=== PATIENT | male | born 1965 | race Caucasian/White ===

== ENCOUNTER → 2020-07-08 09:23 | Outpatient (BNVA) | payer OTHER, SELFPAY | PROVIDERS: PCP Family Medicine; Referring Provider Family Medicine; Visit Provider Physical Therapy Assistant | DX: Z12.11 Encounter for screening for malignant neoplasm of colon (principal) ==

== ENCOUNTER 2020-07-21 04:12 | Outpatient (CLI) | payer OTHER, SELFPAY ==
[2020-07-21 10:53] LABS: Source Nasal/Nares
[2020-07-21 15:50] LABS: COVID-19 PCR Negative (Negative)
== END 2020-07-21 04:13 | disposition home or self-care (01) ==
LOC: LBO 04:13
PROVIDERS: PCP Family Medicine; Visit Provider Surgery
DX: Z20.822 Contact with and (suspected) exposure to COVID-19 (principal); Z01.818 Encounter for other preprocedural examination
CPT/HCPCS: 87635

== ENCOUNTER 2020-07-23 10:12 | Day surgery (SDC) | payer OTHER, SELFPAY ==
[2020-07-23] MEDS: Lactated Ringers 1,000 ML 80 ML IV (10:35)
[2020-07-23 10:38] VITALS: BP 120/90; PULSE 77; RESP 18; TEMP 36.4; O2SAT 96
--- NOTE | 2020-07-23 10:47 | W.ANESPRE ---
General Info Date of Service Date Performed: 07/23/20 Height: 5 ft 11 in Weight: 89.9 kg Body Mass Index (BMI): 27.6 Surgical Procedure: Operation Date: 07/23/20 10:50 Proposed Procedures Side Surgeon suzie Edwards, Meds Allergies and Home Medications Allergies Allergy/AdvReac Type Severity Reaction Status Date / Time niacin Allergy Intermediate flushing Verified 07/23/20 10:37 Home Medication Medication Instructions Recorded bisacodyl 5 mg tablet,delayed 5 mg PO ONCE #4 tab 07/08/20 release polyethylene glycol 3350 17 238 g PO ONCE #238 g 07/08/20 gram/dose oral powder Current Visit Medications: Current Medications Generic Name Dose Route Start Last Admin Trade Name Freq PRN Reason Stop Dose Admin Ringer's Solution 1,000 mls @ 80 mls/hr 07/23/20 06:00 IV 08/21/20 23:59 INFUSION TORRI IV Miscellaneous Supplies 1 each 07/23/20 06:00 Iv Access IV 08/21/20 23:59 DIRECTED TORRI Sodium Chloride 0 ml 07/23/20 06:00 Normal Saline Flush 10 Ml Syr IV 08/21/20 23:59 PRN PRN Sodium Chloride 0 ml 07/23/20 06:00 Normal Saline 10 Ml Vial IJ 08/21/20 23:59 DIRECTED PRN Sterile Water 0 ml 07/23/20 06:00 Water,Injection,Sterile 10 Ml Vial IJ 08/21/20 23:59 DIRECTED PRN PFSH Medical History Medical History (Updated 07/23/20 @ 10:37 by Desitni Conner) History of high cholesterol History of post traumatic stress disorder History of tinnitus History of torn meniscus of right knee Hx of traumatic brain injury Surgical History Surgical History (Updated 07/23/20 @ 10:37 by Destini Conner) Hx of inguinal hernia repair Tobacco Smoking/Tobacco Use Status: Never Alcohol Alcohol Intake: current Alcohol intake frequency: a few times a month Substance Use Substance use: Never Substance use type: does not use Vital Signs and Lab Results Vital Signs Most Recent Vital Signs in EMR: Most Recent Vital Signs Temp Pulse Resp BP Pulse Ox 36.4 C L 77 18 120/90 96 07/23/20 10:38 07/23/20 10:38 07/23/20 10:38 07/23/20 10:38 07/23/20 10:38 Lab Results Blood Type / Crossmatch: No Data to Display Complete Blood Count: No Data to Display Complete Metabolic Panel: No Data to Display Liver Function Panel: No Data to Display Coagulation Panel: No Data to Display Cardiac Panel: No Data to Display Arterial Blood Gas: No Data to Display Venous Blood Gas: No Data to Display Pancreas Panel: No Data to Display Thyroid Panel: No Data to Display Infectious Disease: Coronavirus (COVID-19)(PCR) Negative (Negative) 07/21/20 08:41 07/21/20 Coronavirus 2019 Source Nasal/nares 07/21/20 08:41 07/21/20 Blood Cultures: No Data to Display Toxicology Panel: No Data to Display Anesthesia Assessment and Plan Anesthesia History Personal History: Unknown Anesthesia History Family History: No Family History of Anesthesia Complications Exercise Tolerance Exercise Tolerance: Metabolic Equivalents>4 Pertinent Negatives Pertinent Negatives: No Symptoms of GERD, No Major Cardiovascular Symptoms or Complaints, No Major Pulmonary Symptoms or Complaints (+snores) and No History of CVA/TIA Cardiac & Pulmonary Exam Cardiac Exam: Normal S1/S2 Heart Sounds Pulmonary Exam: Clear Bilateral Breath Sounds Airway Exam Known Difficult Airway: No Mallampati Class: 1 Mouth Opening: Normal (> 3cm) Thyromental Distance: Greater than 3 cm Neck Range of Motion: Full ROM Neck Circumference: Normal Teeth Condition: Normal Dentition ASA Classification ASA Score: ASA 2 Emergency Case?: No NPO Status NPO Status: NPO Clears >2 hours, Solids >8 hours Anesthesia Plan Anesthesia Technique: General Anesthesia Airway Planned: Natural Airway Monitors Used: Standard Monitors
[2020-07-23 10:56] VITALS: BMI 27.6
--- NOTE | 2020-07-23 11:11 | BOWEL_PTH ---
PATIENT: Frankie Monahan LOC: [facility] U#:[id number] AGE/SX: 54/M ROOM: RE07/23/[address]: Onelia Edwards : 1965 BED: DIS: 07/23/2020 SPEC #: [id number] RECD: 07/23/20 12:57 STATUS: BERTO REQ #: [id number] JOHN: 07/23/20 11:[address]: Onelia Edwards DEPT: Surgical Specimen RECD BY: Dorinda Serrano ENTERED: 07/23/20 12:58 SP TYPE: Bowel OTHR DR: Tatum Phillips Tissues: 1 - BIOPSY BOWEL Procedures: GROSS AND MICRO LEVEL 4 Comments: [id number]
[2020-07-23 11:30] VITALS: BP 111/73; PULSE 72; RESP 16; TEMP 36.6; O2SAT 97
--- NOTE | 2020-07-23 11:31 | W.ANESPOSTOP ---
Postoperative Evaluation Date, Time and Location Date Performed: 07/23/20 Time Performed: 11:31 Patient Location: Day Surgery Unit Vital Signs Most Recent Imported Vital Signs: Most Recent Vital Signs Temp Pulse Resp BP Pulse Ox 36.4 C L 77 18 120/90 96 07/23/20 10:38 07/23/20 10:38 07/23/20 10:38 07/23/20 10:38 07/23/20 10:38 Most Recent Manually Entered Vital Signs: Adult Blood Pressure: 111/73 Heart Rate: 73 Respirations: 16 Oxygen Saturation (%): 96 Temperature (C): 36.6 C Pain Score (0-10 Scale): 0 Pain Score Most Recent Pain Score: Most Recent Pain Score Pain Level 0 07/23/20 10:38 Assessment Mental Status: Awake (Alert & Oriented to Patient Baseline) Airway and Respiratory Function: Patent airway with normal (patient baseline) respiratory exam Cardiovascular Function: Hemodynamically Stable Hydration Status: Adequately Hydrated Nausea & Vomiting: No Nausea or Vomiting Pain: Pt. Denies Any Pain Peripheral Nerve Block: Patient did not receive a nerve block
[2020-07-23 11:32] VITALS: BP 111/73; PULSE 73; RESP 16; TEMPC 36.6; O2SAT 96
--- NOTE | 2020-07-23 11:32 | W.COLOREPORT ---
Date of service: 07/23/20 Time of Service: 11:32 Colonoscopy Report Date of procedure: 07/23/20 Pre-op diagnosis general: screen Post-op diagnosis procedure note: same Surgeon: Onelia Edwards Anesthesia Type: General:No Airway Pathology: other Complications: None Disposition: same day Prep: Miralax/Dulcolax Retraction Time: 8 mins Procedure Description: After informed consent was obtained the patient was taken to the procedure room and placed in a left decubitous position. Monitors were applied and a time out was done. The patients name, date of , procedure, allergies to medications and metal in their body was reviewed. The patient was then sedated. Once sedated and comfortable a rectal exam was done. External exam was normal. Internal exam revealed a normal sphincter tone and no palpable masses. The prostate nl The scope was then introduced and retrofelexed. No internal hemorrhoids were identified. The scope was then advanced to the cecum w/out difficulty. The TI and appendiceal orifice were identified. The prep was good. The scope was then slowly retracted over 8 minutes back into the rectum. Polyps were removed: There is a 2 mm flat polyp in the rectum that was removed with a cold biopsy forcep. After further evaluation this is most likely lymphatic tissue and not truly a polyp. There were no diverticula or AVMs noted. And this is essentially a normal exam. The scope was removed and the patient was woken up and taken back to Same day surgery in stable condition. The patient tolerated the procedure well and there were no immediate complications. Follow up: The patient should follow up in 10 years unless they develop changes in bowel habits or other new gastrointestinal complaints.
--- NOTE | 2020-07-23 11:34 | PDOC.DSDIS_ITS ---
Discharge Plan Disposition Patient Disposition: HOME Condition: Good Discharge Details Reason For Visit: colon screen Attending Provider: Onelia Edwards Primary Care Provider: Tatum Phillips Home Meds and New Rx's Prescriptions: Discontinued bisacodyl [Dulcolax (bisacodyl)] 5 mg tablet,delayed release (DR/EC) 5 mg PO ONCE Qty: 4 RF: 0 polyethylene glycol 3350 17 gram/dose powder 238 g PO ONCE Qty: 238 RF: 0 Discharge Instructions Additional Instructions: DSU Colonoscopy Post- Op Instructions Instructions for Everyone who is given Anesthesia: For your safety, please do the following for the next twenty-four (24) hours: *Do Not operate a motor vehicle (car, truck, motorcycle, etc.) *Do Not drink alcoholic beverages or use any recreational drugs for the first 24 hours or while taking pain medications. The medications in your body may have a reaction that can be dangerous. *Do Not make any important decisions or sign any important papers. Findings:normal- very small polyp that I think is lymph tissue. We will send a letter in approximately 3 weeks time with the results of the pathology and when to repeat colonoscopy. I do think this will be lymph tissue and not a true polyp. Follow up: 10 yrs 1. No lifting over 20 pounds or strenuous activity for the first 24 hours after your procedure. After 24 hours there are no restrictions on your activity but you may feel fatigued for a few days. 2. After you arrive home you may have a light meal and return to your normal diet as you can tolerate it without feeling sick to your stomach. 3. You may have a bloated, gaseous feeling in your belly (abdomen) after a colonoscopy. Passing gas and belching will help. Walking or lying down on your left side with your knees flexed may relieve the discomfort. Call the office at [phone] (Office) or [phone] (Hospital) right away if you notice any of the following: a.Vomiting of blood or ?coffee ground stools?. b.Rectal bleeding 1Tbsp, blood clots or continuous bleeding. c.Severe belly (abdominal) pain. d.A hard distended belly (abdomen) and an inability to pass gas. 4. Please don?t expect to have a normal BM (bowel movement) for 2-3 days after your procedure. 5. If there are questions regarding the findings of your procedure, please contact your doctor 6. If you are unable to contact your doctor with a problem, contact the hospital at [phone]. 7. Continue all your regular medications unless directed otherwise. I understand the above instructions and have no questions. Signature of Patient or Adult Escort Name of Responsible Adult Escort Signature of Nurse Date/Time Activity:: as above Diet:: Small light meals x24 hours Discharge Orders Discharge Orders: Discharge Order (Routine); Ordered 07/22/20 Ordered By: Onelia Edwards DS: Diagnosis Discharge Diagnosis (1) Colon cancer screening: Status: Acute
[2020-07-23 11:59] VITALS: BP 132/97; PULSE 61; RESP 16; TEMP 36.6; O2SAT 98
--- NOTE | 2020-07-23 12:11 | PDOC.DSDIS_ITS ---
Discharge Plan Disposition Patient Disposition: HOME Condition: Good Discharge Details Reason For Visit: colon screen Attending Provider: Onelia Edwards Primary Care Provider: Tatum Phillips Home Meds and New Rx's Prescriptions: Discontinued bisacodyl [Dulcolax (bisacodyl)] 5 mg tablet,delayed release (DR/EC) 5 mg PO ONCE Qty: 4 RF: 0 polyethylene glycol 3350 17 gram/dose powder 238 g PO ONCE Qty: 238 RF: 0 Discharge Instructions Additional Instructions: DSU Colonoscopy Post- Op Instructions Instructions for Everyone who is given Anesthesia: For your safety, please do the following for the next twenty-four (24) hours: *Do Not operate a motor vehicle (car, truck, motorcycle, etc.) *Do Not drink alcoholic beverages or use any recreational drugs for the first 24 hours or while taking pain medications. The medications in your body may have a reaction that can be dangerous. *Do Not make any important decisions or sign any important papers. Findings:normal- very small polyp that I think is lymph tissue. We will send a letter in approximately 3 weeks time with the results of the pathology and when to repeat colonoscopy. I do think this will be lymph tissue and not a true polyp. Follow up: 10 yrs 1. No lifting over 20 pounds or strenuous activity for the first 24 hours after your procedure. After 24 hours there are no restrictions on your activity but you may feel fatigued for a few days. 2. After you arrive home you may have a light meal and return to your normal diet as you can tolerate it without feeling sick to your stomach. 3. You may have a bloated, gaseous feeling in your belly (abdomen) after a colonoscopy. Passing gas and belching will help. Walking or lying down on your left side with your knees flexed may relieve the discomfort. Call the office at [phone] (Office) or [phone] (Hospital) right away if you notice any of the following: a.Vomiting of blood or ?coffee ground stools?. b.Rectal bleeding 1Tbsp, blood clots or continuous bleeding. c.Severe belly (abdominal) pain. d.A hard distended belly (abdomen) and an inability to pass gas. 4. Please don?t expect to have a normal BM (bowel movement) for 2-3 days after your procedure. 5. If there are questions regarding the findings of your procedure, please contact your doctor 6. If you are unable to contact your doctor with a problem, contact the hospital at [phone]. 7. Continue all your regular medications unless directed otherwise. I understand the above instructions and have no questions. Signature of Patient or Adult Escort Name of Responsible Adult Escort Signature of Nurse Date/Time Stand Alone Forms: Elvia Aragon (JUANU) Activity:: as above Diet:: Small light meals x24 hours Discharge Orders Discharge Orders: Discharge Order (Routine); Ordered 07/22/20 Ordered By: Onelia Edwards Discharge Data Discharge Date/Time-TO BE ENTERED AT DEPARTURE: 07/23/20 13:08 DS: Diagnosis Discharge Diagnosis (1) Colon cancer screening: Status: Acute (2) Adenomatous colon polyp: Status: Acute
== END 2020-07-23 13:08 | disposition home or self-care (01) ==
PROVIDERS: PCP Family Medicine; Visit Provider Surgery
PROC: 0DJD8ZZ Inspection of Lower Intestinal Tract, Via Natural or Artificial Opening Endoscopic (ICD-10-PCS; CPT 45378; principal; 2020-07-23 10:45)
DX: Z12.11 Encounter for screening for malignant neoplasm of colon (principal); K62.1 Rectal polyp
CPT/HCPCS: 45380; 88305; J2001

== ENCOUNTER 2022-01-13 08:30 | Outpatient (CLI) | payer OTHER, SELFPAY ==
--- NOTE | 2022-01-13 08:15 | DI.RAD_ITS ---
Exam(s) XR KNEE RT 3V AP,LAT,MICHELLE EXAM: XR KNEE RT 3V AP,LAT,MICHELLE CLINICAL HISTORY: R knee pain. TECHNIQUE: 2D digital imaging was performed of the right knee. Three views obtained. AP, lateral an d PA tunnel views were obtained. COMPARISON: No exams were available for comparison FINDINGS: BONES: No acute fracture is present. No bony destructive lesion is seen. JOINTS: The knee is normally aligned. No joint effusion is seen. There is mild narrowing and periarti cular spurring in the medial femoral tibial joint. SOFT TISSUE: Normal. IMPRESSION: Degenerative changes of the right knee as described. DATA REPOSITORY: RADIATION DOSE DELIVERED:
== END 2022-01-13 08:31 | disposition home or self-care (01) ==
LOC: DIORS 08:30
PROVIDERS: PCP Family Medicine; Referring Provider Family Medicine; Visit Provider Physician Assistant
DX: M23.91 Unspecified internal derangement of right knee
CPT/HCPCS: 73562; 99213

== ENCOUNTER 2022-02-07 02:18 | Outpatient (CLI) | payer OTHER, SELFPAY ==
--- NOTE | 2022-02-07 08:00 | DI.MRI_ITS ---
Exam(s) MR LOWER JOINT RT WO EXAM: MR LOWER JOINT RT WO CLINICAL HISTORY: PAIN, INTERNAL DERANGEMENT RT KNEE, M23.91. TECHNIQUE: Multiplanar multisequence MRI was performed. COMPARISON: CR XR KNEE RT 3V AP,LAT,MICHELLE from 01/13/2022 FINDINGS: BONES: There is no fracture or contusion pattern. JOINTS: There is mild thinning of the articular cartilage in the medial patellar facet. There is mil d associated subchondral edema. No effusion is present. TENDONS: Extensor mechanism: Unremarkable. Medial retinaculum: Unremarkable. Lateral retinaculum: Unremarkable. Popliteus: Unremarkable. MUSCLES: Unremarkable. MENISCI: There is a tear of the posterior body of the medial meniscus. The lateral meniscus is unrem arkable. SOFT TISSUES: There is a small popliteal cyst. LIGAMENTS: Anterior Cruciate: Unremarkable. Posterior Cruciate: Unremarkable. Medial Collateral:Unremarkable. Lateral Collateral: Unremarkable. OTHER: IMPRESSION: 1. Tear of the posterior body of the medial meniscus. 2. Degenerative changes at the patellofemoral joint. 3. Small popliteal cyst. DATA REPOSITORY:
== END 2022-02-07 02:38 ==
LOC: DI 02:18
PROVIDERS: PCP Family Medicine; Visit Provider Student in an Organized Health Care Education/Training Program
DX: S83.241A Other tear of medial meniscus, current injury, right knee, initial encounter (principal); M17.11 Unilateral primary osteoarthritis, right knee; X58.XXXA Exposure to other specified factors, initial encounter
CPT/HCPCS: 73721

== ENCOUNTER → 2022-04-10 14:08 | Outpatient (BNVA) | payer OTHER, SELFPAY | PROVIDERS: PCP Family Medicine; Referring Provider Family Medicine; Visit Provider Student in an Organized Health Care Education/Training Program | DX: S83.231D Complex tear of medial meniscus, current injury, right knee, subsequent encounter (principal); X58.XXXD Exposure to other specified factors, subsequent encounter | CPT/HCPCS: 99213 ==

== ENCOUNTER → 2023-02-21 01:57 | Outpatient (CLI) | payer OTHER, SELFPAY ==
--- NOTE | 2023-02-21 | DI.MRI_ITS ---
Exam(s) MR LOWER JOINT LT WO EXAM: MR LOWER JOINT LT WO CLINICAL HISTORY: RT KNEE MENISCAL TEAR S83.206A TECHNIQUE: Multiplanar multisequence MRI of the knee was performed. COMPARISON: No prior imaging studies of the left knee available FINDINGS: EFFUSION: There is a small joint effusion and there is a small Ramirez cyst in the medial popliteal fos sa which measures approximately 2.8 cm cephalocaudal by 0.6 cm wide. MARROW:There is no evidence of fracture, bone contusion, nor osteochondral defects.. There are no si gnificant osseous lesions. PATELLOFEMORAL COMPARTMENT: The quadriceps tendon is intact. The patellar ligament is intact. There is moderate thinning of the retropatellar cartilage over the medial facet and there is a focal fissure in the cartilage at this level with subjacent bone edema in the medial patella. There is no distinct osteochondral defect at this level.There are no patellar retinacular tears. CRUCIATE LIGAMENTS: The anterior cruciate ligament is intact.The posterior cruciate ligament is intac t. MEDIAL COMPARTMENT/MEDIAL MENISCUS: There is a thin tear in the posterior horn of the medial meniscus . This is horizontal in the outer 3rd and there is an inferior surface tear at the mid aspect of the posterior horn. The root is intact. No bucket-handle configuration.The anterior horn of the medial meniscus is intact.. There is mild chondromalacia over the anterior weight-bearing surface of the medial femoral condyle. No large full-thickness chondral defects and no osteochondral defects seen. No marginal osteophytes evident. No meniscocapsular separation. However, there is some fluid signal related to the pes ans erine tendons the posteromedial corner and there is signal abnormality within the insertional aspect of the semimembranosus tendon upon the tibia consistent with partial tearing. MEDIAL COLLATERAL LIGAMENT: Intact LATERAL COMPARTMENT/LATERAL MENISCUS: There is no evidence of lateral meniscal tear.There are no ben dral defects, osteochondral defects, subarticular marrow edema, nor osteophytes evident. ILIOTIBIAL BAND: Intact LATERAL COLLATERAL LIGAMENT COMPLEX: The fibular collateral ligament is intact. The biceps femoris t endon is intact.Popliteus muscle and tendon are intact. IMPRESSION: 1. There tears in the posterior horn of the medial meniscus, with horizontal tear in the outer 3rd an d inferior surface tear at the mid aspect of the posterior horn. The meniscal root is intact. Anter ior horn is intact. Mild chondromalacia noted over the anterior weight-bearing surface of the medial femoral condyle. There are no large chondral defects nor osteochondral defects nor subarticular bon e edema. 2. There are no tears of the lateral meniscus. There are no cruciate ligament tears. 3. There is some fluid signal in the posteromedial corner of the knee associated with the pes anserin e tendons (gracilis/sartorius/semitendinosis). There is also signal abnormality within the insertion al aspect of the semimembranosus tendon on the tibia consistent with partial tearing. 4. There is a small joint effusion in the knee and there is a small Ramirez cyst. DATA REPOSITORY:
== END ==
PROVIDERS: PCP Family Medicine; Visit Provider Orthopaedic Surgery
DX: M23.221 Derangement of posterior horn of medial meniscus due to old tear or injury, right knee (principal); M25.462 Effusion, left knee
CPT/HCPCS: 73721

== ENCOUNTER 2024-01-23 16:37 | Outpatient (REF) | payer OTHER, SELFPAY ==
--- OUTSIDE RECORDS SUMMARY | 2024-01-23 16:40 | XMS_ITS | Clinical Summary ---
Author Organization [facility] Address [address] [place] [id number] Care Team Providers Care Aviation Manager Name Role Phone Tatum Phillips MD Primary Care Provider [phone] Social History Tobacco Use Types Packs/Day Years Used Date Smoking Tobacco: Never Assessed Interpersonal Safety Answer Date Record ed Physically Hurt Never 07/23/2020 Verbally Threaten Not on file 07/23/2020 Sex and Gender Information Value Date Recorded Sex Assigned at Not on file Gender Identity Not on file Sexual Orientation Not on file Plan of Treatment Health Maintenance Due Date Last Done Comments Hepatitis C Screen 1965 Hepatitis B Vaccine (1 of 3 - 19+ 3-dose series) 11/10 COVID-19 Vaccine ( season) 2022 Care Teams Aviation Manager Relationship Specialty Start Date End Date Tatum Phililps MD [address] [place] [id number] PCP - General 03/19/20
--- OUTSIDE RECORDS SUMMARY | 2024-01-23 16:41 | XMS_ITS | Encounter Summary ---
Author Organization [facility] Address One [facility] [place] [address] Care Team Providers Care Burner Tender Name Role Phone Tatum Phillips MD Primary Care Provider [phone] Encounter Details Date Type Department Care Team ([facility] Contact Info) Description 12/17/2023 7:45 AM EDT Office Visit Dermatology [facility] [address] [place] [address] Jayce Crespo MD [address] [facility] [place] [address] Tinea versicolor; History of basal cell carcinoma (BCC); Lentigines; Seborrheic keratoses; Dhaliwal angioma; Multiple benign nevi of upper extremity, lower extremity, and trunk Social History Tobacco Use Types Packs/Day Years Used Date Smoking Tobacco: Never Smokeless Tobacco: Never Comments:quit many years ago . Alcohol Use Standard Drinks/Week Comments Not Asked 0 (1 standard drink = 0.6 oz pur e alcohol) Sex and Gender Information Value Date Recorded Sex Assigned at Not on file Gender Identity Not on file Sexual Orientation Not on file documented as of this encounter Progress Notes * Jayce Crespo MD - 12/17/2023 7:45 AM EDT Images from the original note were not included. DEPARTMENT OF DERMATOLOGY Medical Dermatology Clinic Provider: Jayce Crespo MD FAAD at Dermatology [facility] Patient's preferred name Frankie Preferred contact method for results myDH and Cell Phone with detailed results? [x]Yes []No Approved contact for medical information: - PAST MEDICAL HISTORY (if blank, patient denies history) Melanoma -- Dysplastic nevi -- SCC -- BCC Left preauricular cheek, BCC s/p Mohs Jan 2023 Mid chest, left of midline, BCC C&E Oct 2016 Left ala, BCC biopsied Nov 2014 - observation AK No history of AKs Skin Cancer Risk Risk: History of sun damage and Personal history of skin cancer Mitigation: Sun protection Other relevant history Tinea versicolor FAMILY HISTORY (if blank, patient denies history) Melanoma -- NMSC -- Other relevant history SOCIAL HISTORY Occupation: Special Clerical Aide Teacher Last seen 11/29/2022. History of Present Illness: Frankie Monahan is 58 y.o. and here for the following: Requests skin cancer screening. No suspicious lesions No known recurrence of previous skin cancer. Medications: Reviewed in eD-H Allergies: Reviewed in eD-H Skin Examination Well developed, well-nourished in no apparent distress, alert and oriented to time, person, place and situation. Patient was asked to disrobe to the level of comfort. Examination of the skin of the head - including the scalp, face, ears, eyelids, nose, lips, tongue,oral/conjunctival mucosa - neck, chest, abdomen, back, axillae, buttocks, pubic area, upper and lower extremities, including the nail plates, significant for the following. Exam Findings/Assessment/Plan Tinea versicolor [place] polycyclic macules or small patches coalescing into patches - with fine scale on skin spread -on the upper back, AC fossae, right anterior hip Recurrent. Asymptomatic. Treating with OTC Selsun Blue Recommend ketoconazole OTC or similar topical Reviewed: tinea versicolor, likely recurrent course, etiology, and treatment options, including selenium sulfide or nizoral shampoo or systemic antifungal regimen. Discussed major risks of liver inflammation or even failure as well as recurrence associated with systemic treatment. Answered all questions. Handout on tinea versicolor provided. Patient will treat as needed. Start ketoconazole 1% shampoo applied to affected areas and rinsed after 5 minutes daily for up to 3 weeks as needed. Lentigines Multiple, uniformly servin, slightly irregular, polygonal macules c/w lentigos on sun-exposed areas ofskin Benign. Counseled: lentigines, sun damage and spontaneous development, rare risk of lentigo maligna (melanoma arising in a lentigo), sun protection, no treatment necessary but discussed cosmetic options, including topical bleaching agents, as well as chemical peels and lasers. Answered all questions. Handout given. Dhaliwal Angiomas Dhaliwal red papules on the head, trunk, extremities, and axillae Counseled: dhaliwal angiomas. Benign. No treatment necessary unless symptoms develop. Treatment considered cosmetic and [id number]. Treatment options, including but not limited to electrocautery, discussed. Handout given. Nevi Well-demarcated, round or oval, servin or brown macules and papules with benign morphology on the head, neck, trunk, extremities, buttocks, and pubic area Morphology reassuring for benign nevi. Counseled: Nevi and risks for melanoma arising in a nevus. Recommend regular self-examinations. Answered all questions. Reviewed ABCDEs of melanoma, as below. Return to clinic as needed for changes in color, size, shape or thickness or should bleeding or other symptoms occur. Patient agrees to plan. Seborrheic Keratoses Scattered, stuck-on, well-demarcated, servin or brown, waxy or warty papules c/w SKs on the head, neck, trunk, extremities, axillae, and pubic area Benign. No treatment necessary. Counseled: SKs, benign, treatment options for symptomatic lesions. Answered all questions. Handout given. History of Skin Cancer No clinical evidence of recurrence in scars, as listed above Recommend regular evaluation of scars Return to clinic if suspect recurrence. Patient agrees to plan. Patient Counseled [Skin Cancer] Personal higher risk associated with: UV damage and History of skin cancer Reviewed risk factors above. Discussed sun protection including protective clothing such as UPF rated clothing, hats, sun glasses, and OTC sunscreens such as CeraVe mineral sunscreen, regular self-exams. Recommend provider exams every 12 months. Answered all questions. Joint decision for skin cancer screening in 12 months. Regular full body self examinations Return to clinic for new suspicious lesions or if changes/symptoms in existing lesions develop. Sun protection including OTC mineral sunscreens such as CeraVe, UPF rated clothing, sunglasses and hats Handout(s) given to patient Sun protection including protective clothing such as UPF rated clothing, hats, sun glasses, and OTCsunscreens such as CeraVe mineral sunscreen, How to perform a self skin exam, Melanoma: ABCDEs of melanoma, examples of atypical/suspicious features, and Nonmelanoma skin cancers: general features and examples. Follow-up: [facility]CS in Nov 2024. Return sooner as needed for suspicious lesion, new or worsening dermatitis. [] Recall placed [x] Forwarded to surgical scheduler [] Patient scheduled before exiting Reviewed and signed by: Jayce Crespo MD [facility] documented in this encounter Plan of Treatment Not on file documented as of this encounter Visit Diagnoses Diagnosis Tinea versicolor Pityriasis versicolor History of basal cell carcinoma (BCC) Lentigines Other dyschromia Seborrheic keratoses Dhaliwal angioma Nevus, non-neoplastic Multiple benign nevi of upper extremity, lower extremity, and trunk documented in this encounter Care Teams Burner Tender Relationship Specialty Start Date End Date Tatum Phillips MD [address] [place] [address] PCP - General Family Medicine 01/17/23 documented as of this encounter
--- OUTSIDE RECORDS SUMMARY | 2024-01-23 16:41 | XMS_ITS | Encounter Summary ---
Author Organization [facility] Address [facility] [place] [address] Care Team Providers Care Manager Spring Name Role Phone None Primary Care Provider Unavailabl e Reason for Referral * Consultation (Routine) - Closed Specialty Diagnoses / Procedures Referred By Contac t Referred To Contact Dermatology Diagnoses Nodular basal cell carcinoma (BCC) Jayce Crespo MD [address] [place] [id number] Rafa Renteria MD [facility] [place] [address] Referral ID Status Reason Start Date Expiration Date V isits Requested Visits Authorized [id number] Closed Consult, Test & Treat 12/08/2022 12/08/2023 1 1 Encounter Details Date Type Department Care Team (Late st Contact Info) Description 12/08/2022 Transcribe Orders Dermatology at [facility] [address] [place] [address] Jayce Crespo MD [address] [place] [facility] [place] [address] Nodular basal cell carcinoma (BCC) Social History Tobacco Use Types Packs/Day Years [...] on file documented as of this encounter Plan of Treatment Scheduled Referrals Name Type Priority Associated Diagnoses Order Schedule Referral to Dermatology Outpatient Referral Routine Nodular Basal Cell Carcinoma (Bcc) Ordered: 12/08/2022 documented as of this encounter Visit Diagnoses Diagnosis Nodular basal cell carcinoma (BCC) documented in this encounter Care Teams Manager Spring Relationship Specialty Start Date End Date None None PCP - General 08/02/21 01/16/23 documented as of this encounter
--- OUTSIDE RECORDS SUMMARY | 2024-01-23 16:41 | XMS_ITS | Clinical Summary ---
Author Organization [facility] Address One [facility] [place] [address] Care Team Providers Care Human Resources Admin Name Role Phone Tatum Phillips MD Primary Care Provider [phone] Allergies Active Allergy Reactions Criticality Noted Date Comments Niacin 09/08/2016 Medications No known medications Active Problems Problem Noted Date Diagnosed Date Seborrheic keratosis, inflamed 04/10/2013 Milia 04/10/2013 Wart vs tag right zygoma 04/01/2012 SK (seborrheic keratosis) 04/01/2012 Multiple nevi 04/01/2012 AK (actinic keratosis) 10/17/2010 CIS - Entered not Verified 03/28/2010 Overview (05/24/2010): Please place the Entered not verified into the Problems entered in error file after verifying the problem list. CIS - Seborrheic Keratosis - left rastafarian Encounters Date Type Department Care Team Description 12/17/2023 7:45 AM EDT Office Visit Dermatology at [facility] [address] [place] [address] Jayce Crespo MD Tinea versicolor; History of basal cell carcinoma (BCC); Lentigines; Seborrheic keratoses; Dhaliwal angioma; Multiple benign nevi of upper extremity, lower extremity, and trunk 12/17/2023 Travel from Last 3 Months Social History Tobacco Use Types Packs/Day Years Used Date Smoking Tobacco: Never Smokeless Tobacco: Never Comments:quit many years ago . Alcohol Use Standard Drinks/Week Comments Not Asked 0 (1 standard drink = 0.6 oz pur e alcohol) Sex and Gender Information Value Date Recorded Sex Assigned at Not on file Gender Identity Not on file Sexual Orientation Not on file Last Filed Vital Signs Vital Sign Reading Time Taken Comments Blood Pressure 134/83 01/17/2023 7:48 AM EDT Pulse 71 01/17/2023 7:48 AM EDT Temperature - - Respiratory Rate 17 02/09/2015 8:43 AM EST Oxygen Saturation - - Inhaled Oxygen Concentration - - Weight - - Height - - Body Mass Index - - Plan of Treatment Health Maintenance Due Date Last Done Comments CT Colonography 1966 Colonoscopy 1966 Colorectal Cancer Screening 1966 FIT DNA 1966 FIT 1966 Sigmoidoscopy (10 year) with FIT yearly 1966 Sigmoidoscopy 1966 HIV screen 1984 Hepatitis C Screening 1984 Lipid Screening 1984 Hepatitis B vaccine (0-59 yrs) (1) 1985 Tetanus/Diphtheria/Pertussis Vaccines (1 - Tdap) 1985 Zoster vaccine (1 of 2) 2016 Advance Directive 2021 Covid-19 Vaccine (3 - season) 11/18/202308/2020, 04/25/2020 Influenza (Flu) vaccine (1 o f 1 - Influenza standard series) 11/18/2023 Care Teams Human Resources Admin Relationship Specialty Start Date End Date Tatum Phillips MD [address] [place], [place] [id number] PCP - General Family Medicine 01/17/23
--- OUTSIDE RECORDS SUMMARY | 2024-01-23 16:41 | XMS_ITS | Encounter Summary ---
Author Organization [facility] Address [facility] [place] [address] Care Team Providers Care Circulation Representative Name Role Phone None Primary Care Provider Unavailabl e Encounter Details Date Type Department Care Team (Latest Contact Info) Description 11/29/2022 Travel Social History Tobacco Use Types Packs/Day Years [...] as of this encounter Plan of Treatment Not on file documented as of this encounter Visit Diagnoses Not on filedocumented in this encounter Care Teams Circulation Representative Relationship Specialty Start Date End Date None None PCP - General 08/02/21 01/16/23 documented as of this encounter
--- OUTSIDE RECORDS SUMMARY | 2024-01-23 16:41 | XMS_ITS | Encounter Summary ---
Author Organization [facility] Address One [facility] [place] [address] Care Team Providers Care Integrated Circuit Ic Layout Designer Name Role Phone Jen Shelley MD Primary Care Provider Encounter Details Date Type Department Care Team (Late st Contact Info) Description 05/18/2017 7:30 AM EST Office Visit Dermatology at [facility] [address] [place] [address] Jayce Crespo MD [address] [facility] [place] [address] Hypertrophic scar; History of nonmelanoma skin cancer; Multiple benign nevi; Seborrheic keratosis; Sun-damaged skin; Dermatofibroma Social History Tobacco Use Types Packs/Day Years [...] Progress Notes * Jayce Crespo MD - 05/18/2017 7:30 AM EST DEPARTMENT DERMATOLOGY AT [facility] Dermatology At [facility] [address] [facility] [address] FOLLOW-UP Chief Complaint: history of hypertrophic scar on the chest - unchanged History of Present Illness Frankie Monahan is a 51 y.o. male. Complains of a pink firm bump on the chest at the site of a previous skin cancer that developed about 1-2 months after the procedure. No bleeding. No history of keloids. Never been treated or biopsied. Requests full body skin cancer screening. No known recurrence at previous skin cancer sites. No other suspicious lesions. Interval changes to Medications and Medical, Family and Social Histories (including alcohol and tobacco use) Since Last Visit 11/01/16: No significant interval history. Skin Cancer History Mid chest, left of midline, BCC C&E Oct 2016 Left ala, BCC biopsied Nov 2014 - unable to find at time of Mohs and elected to monitor Allergies No Known Allergies Medications None Review of Systems Significant for no pertinent and acute changes in constitutional, other skin systems upon specific queries. Examination Standby: Ledy Ansari LPN Mood is appropriate. Well developed, well-nourished in no apparent distress, alert and oriented to time, person, place and situation. Patient was asked to disrobe to the level of comfort. Examination of the skin of the head - including the scalp, face, ears, nose, lips - neck, chest, abdomen, back, axillae, upper extremities, including the nail plates, significant for the following: ?? Well-demarcated, round or oval, servin or brown macules and papules with benign morphology on the head, trunk and extremities ?? Multiple, dhaliwal red 1-4mm papules on the head ?? Scattered, stuck-on, well-demarcated, servin or brown, waxy or warty papules c/w SKs on the trunk ?? Severe sun-damage on sun-exposed areas including irregular servin macules on sun-exposed areas and epidermal thinning with dyspigmentation and/or telangectia sun-exposed areas of the neck, chest. ?? Firm papule with dimple sign c/w DF on the left anterior ankle ?? No evidence of recurrence in scars on the left ala and mid chest. 11 x 13 mm pink firm plaque confined to the scar on the left chest. Assessment and Plan Hypertrophic Scar, Chest Favor hypertrophic scar over keloid or recurrence of BCC. Counseled: scar v keloid, hypertrophic scar generally resolve within a year, treatment options, including intralesional Kenalog or laser, topical steroids/imiquimod, and risks and benefits. Recommendobservation. Patient agrees to observation. Handout on keloids and hypertrophic scars given to the patient. Return to clinic if if changes in color, enlarges, or should bleeding or other symptoms occur. Patient agrees to plan. Nevi Morphology reassuring for benign nevi. Counseled: Nevi and risks for melanoma arising in a nevus. Recommend regular self-examinations. Answered all questions. Reviewed ABCDEs of melanoma, as below. Return to clinic prn for changes in color, size, shape or thickness or should bleeding or other symptoms occur. Patient agrees to plan. Seborrheic Keratoses Benign. No treatment necessary. Counseled: SKs, benign, treatment options for symptomatic lesions. Answered all questions. Handout given Dhaliwal Angiomas Counseled: dhaliwal angiomas. Benign. No treatment necessary unless symptoms develop. Treatment considered cosmetic and [id number]. Treatment options, including but not limited to electrocautery, discussed. Handout given. Solar Damage, including Lentigines Benign but evidence of severe chronic sun damage. Counseled: risks for skin cancer, thinning of skin. Discussed lentigines, sun damage and spontaneous development, rare risk of lentigo maligna (melanoma arising in a lentigo), sun protection, no treatment necessary but discussed cosmetic options, including topical bleaching agents, as well as chemical peels and lasers. Answered all questions. Handout on lentigines and sun protection given to the patient. History of Skin Cancer No evidence of recurrence Patient Counseled [Skin Cancer] Counseled: sun protection, regular self skin exams, provider skin exams every 6 months, and the ABCDEs of melanoma/NMSC. Answered all questions. Handouts on how to do a self-exam, skin cancers and sun protection given to the patient. Follow-up: Skin cancer screening in 6 months or return to clinic prn for new suspicious lesions or if changes/symptoms in existing lesions develop. Jayce Crespo MD FAAS[facility] Section of Dermatology [facility] documented in this encounter Plan of Treatment Not on file documented as of this encounter Visit Diagnoses Diagnosis Hypertrophic scar Keloid scar History of nonmelanoma skin cancer Personal history of other malignant neoplasm of skin Multiple benign nevi Benign neoplasm of skin, site unspecified Seborrheic keratosis Other seborrheic keratosis Sun-damaged skin Other chronic dermatitis due to solar radiation Dermatofibroma Benign neoplasm of skin, site unspecified documented in this encounter Care Teams Integrated Circuit Ic Layout Designer Relationship Specialty Start Date End Date Jen Shelley MD [address] [place] [address] PCP - General 12/09/14 01/26/20 documented as of this encounter
--- OUTSIDE RECORDS SUMMARY | 2024-01-23 16:41 | XMS_ITS | Encounter Summary ---
Author Organization [facility] Address [facility] [place] [address] Care Team Providers Care Spring Former Machine Name Role Phone Jen Shelley MD Primary Care Provider Reason for Visit * Reason Comments Basal Cell Carcinoma Encounter Details Date Type Department Care Team (Late st Contact Info) Description 01/05/2015 2:45 PM EDT Office Visit Dermatology at [facility] [address] [place] [address] Luis Armando Andre MD [facility] [address] [address] BCC (basal cell carcinoma), face Social History Tobacco Use Types Packs/Day Years Used Date Smoking Tobacco: Former Comments:quit many years ago . Alcohol Use Standard Drinks/Week Comments Not Asked 0 (1 standard drink = 0.6 oz pur e alcohol) Sex and Gender Information Value Date Recorded Sex Assigned at Not on file Gender Identity Not on file Sexual Orientation Not on file documented as of this encounter Last Filed Vital Signs Vital Sign Reading Time Taken Comments Blood Pressure 137/101 01/05/2015 2:42 PM EDT Pulse 66 01/05/2015 2:42 PM EDT Temperature - - Respiratory Rate 16 01/05/2015 2:42 PM EDT Oxygen Saturation - - Inhaled Oxygen Concentration - - Weight - - Height - - Body Mass Index - - documented in this encounter Patient Instructions * Patient Instructions* Shilpa Pabon LPN - 01/05/2015 2:49 PM EDT Mohs Micrographic Surgery Date: Dear: You have been scheduled for Mohs Surgery with Dr. Luis Armando Andre on: Mohs surgery is a technique to treat and remove skin cancers under complete microscopic control. Itoffers the best cure rate, but, because of its complexity, is reserved for those cancers where other treatments have failed or are less likely to result in a cure. It is also used for skin cancers located in critically important cosmetic areas like the nose, ears, or eyelids. Pre-Surgery Instructions: ??? Stop or decrease smoking 5 days prior to surgery. ??? Take ALL medications as directed by your Primary Care Physician on the morning of your surgery.You will be required to update your INR no greater than one week prior to your procedure if you aretaking warfarin (Coumadin). ??? Discontinue Vitamin E and any herbal remedies as soon as you receive this handout. ??? Discontinue alcohol and alcohol containing medications (such as NyQuil) 5 days prior to surgery. ??? Purchase wound care supplies prior to surgery. Morning of Surgery Instructions: ??? You should eat a normal breakfast and continue drinking fluids - if caffeine makes you nervous or jittery, please refrain from consuming caffeine containing products on the morning of surgery. Ifyou are scheduled for reconstructive surgery in the Operating Room on the same day as your Mohs procedure, follow the guidelines given to you by the Same Day Surgery Unit regarding food/fluid intake. ??? Take ALL routine medications on schedule unless otherwise instructed. Please bring all medication with you on the day of surgery. ??? Wear comfortable, warm, loose-fitting clothing - a button down shirt is preferred ??? Do not wear perfume, cologne, or makeup ??? Do not remove dentures ??? Shower and shampoo your hair before surgery as your initial bandage may have to remain dry for up to 48 hours. Supplies you will need to purchase prior to your surgery: ??? Clean cotton swabs (Q-tips) ??? A tube of Aquaphor or white petrolatum (avoid jars) -Antibiotic ointment is not recommended as many patients are now becoming allergic to topical antibiotics. An allergic reaction can turn the skin red with swelling and weeping, mimicking an infection. New data has come out stating that clean canales rgical wounds do not need antibiotic ointment and should be dressed with plain ointment. ??? Non-stick gauze (Telfa pads) or Band-Aids - It is good to have some non- stick bandages that canbe cut and taped over the wound. We use a brand called Telfa but any non-stick bandage will work. Ask your pharmacist what is available in the store. ??? Paper Tape - It will allow the bandage to stick, but will not harm the skin. It is usually welltolerated by patients that have tape allergies. One roll is all you will need. Some patients require bandaging for 1-2 weeks, while others may require bandages for longer periodsof time. We cannot determine this prior to your surgery; therefore, you should have at least one week???s worth of supplies. What to Expect the Day of Surgery: Briefly, the technique is performed as follows: The location of your skin cancer is identified and numbed with a local anesthetic. All visible tumor is removed as well as a thin margin of surroundingskin. Bleeding is stopped and a bandage is placed over the wound. The tissue is then taken to the lab, in our office, where it is processed, stained and placed on a slide. This process will take approximately 60-90 minutes. The physician will then look at the slides under a microscope to identify any remaining tumor. If there is any tumor visible, you will be brought back into the procedure room and a second layer of tissue will be removed. The process continues until no further tumor is identified. On average, patients have 2-3 layers taken, depending on the size and depth of the tumor. On the day of our surgery, the physician will discuss with you options for wound reconstruction andhealing. Reconstructive surgery cannot be predetermined as it depends on the size and depth of the wound after removal of the lesion as well as each individual???s needs. Because we do not know how extensive your skin cancer is, you may be here for the majority of the day. It is a good idea to bring a book, or other materials to keep you occupied. Our facility does not offer a guest [facility] at this time. We also recommend you bring a lunch or light snack. There are vending machines available with limited food options, as well as complimentary snack foods butno cafeteria or restaurants. For your comfort, we recommend that you dress in layers. We recommend that you have someone with you to keep you company, and unless otherwise specified we require that you have a water truck driver, as surgery can be stressful and tiring. If you are being transportedfrom a [facility] or other similar facility, we request that someone stay with you during this appointment. We are located in the [facility] [place], [place]. Please referto the [facility] website for detailed driving directions ([email or web address]). When you arrive,please park in the upper parking lot. When you enter the building, go to the third floor, the entry level receptionist area is located on the left (follow signs for Dermatology). What to expect after surgery: ??? Pain: Most people are concerned about pain. You will experience remarkably little discomfort after your surgery. Due to the potential to cause bleeding, we request that you do not take Aspirin orNSAIDS (ie. Ibuprofen, Aleve) for pain control. You may use acetaminophen (Tylenol). ??? Bleeding: A small number of patients will experience some bleeding post operatively. This bleeding can usually be controlled by pressure. If the bleeding persists after 15 minutes of continuous pressure, repeat for another 15 minutes. If this fails, contact our office at [phone] (after 5PMplease call [phone] and ask for the [employer] Operator identification printing machine setter). Avoid bending over, heavy lifting (no greater than 10 pounds), straining, and do not drink alcohol for 2 days post operatively as thismay stimulate bleeding. ??? Potential Complications: There are some complications that may occur after Mohs Surgery. A small red area may develop surrounding your wound - this is normal and does not necessarily indicate infection. However, if the redness widens over a 2-3 day period, the wound begins to have drainage, or you experience fever or chills, notify our office immediately. Swelling and bruising are very commonfollowing Mohs surgery, particularly when it is performed around the eyes. It is common for one or both eyes to swell shut 1-3 days post operatively. At times, the area surrounding the operative sitewill be numb to touch. This area of numbness may persist for several months or longer, and in instances may be permanent. On rare occasions, there can be damage to the motor nerves which can result in permanent paralysis of affected muscles. Although every effort will be made to offer the best possible cosmetic results, scar formation is part of the healing process, and you will have a permanent scar. The scar can be minimized by the proper care of your wound. We will discuss wound care with you in detail at the time of your appointment. Please feel free to call the office if you have any questions about the procedure or the medications you are taking. Our office phone number is [phone]. documented in this encounter Progress Notes * Luis Armando Andre MD - 01/05/2015 2:36 PM EDT MOHS SURGICAL CONSULT Chief Complaint: BCC History of Present Illness: Referring Physician: Bekah Prieto MD Tumor type: Basal cell carcinoma Location of Skin Cancer: Left ala Duration of Presence: < 6 months Previous Treatment: None Symptoms: [] Pain [] Bleeding [] Crusting [x] Other; raised [] None Previous History of Skin Cancer: [x] None [] List: Family History of Skin Cancer [] None [] Melanoma [] Basal cell [] Squamous cell [x] Other: Father had NMSC Review of Systems: Check all that apply regarding other health problems Skin Hematological Eyes/Ears/Nose/Throat [x] Normal [x] Normal [x] Normal [] Thick scars/keloids [] Anemia [] Glaucoma [] Poor wound healing [] Bleeding problems [] Hearing aid [] Herpes infection/cold sores [] Enlarged lymph nodes [] Cosmetic surgery [] Other [] Other [] Other Cardiovascular Respiratory GI/Renal [x] Normal [x] Normal [x] Normal [] Angina (chest pain) [] Emphysema [] Colitis [] Heart attack (Date ) [] COPD [] Stomach ulcer [] Artificial heart valve [] Asthma [] Kidney disease [] Pacemaker/defib [] Other [] Other [] HTN [] Other Musculoskeletal Endocrine Infections [x] Normal [x] Normal [x] None [] Arthritis [] Thyroid disease [] HIV/AIDS [] Artificial joint (Year ) [] Diabetes [] Hepatitis (type ) [] Other [] Other [] Tuberculosis [] Other Neurological Psychiatric [x] Normal [x] Normal [] Stroke [] Anxiety [] Seizures [] Depression [] Mental status change [] Other [] Other Do you take antibiotics prior to having a dental or any other procedure; None Medical Problems (not listed above): Patient Active Problem List Diagnosis Code ??? CIS - Entered not Verified ??? CIS - Seborrheic Keratosis - left mu-ism ??? AK (actinic keratosis) L57.0 ??? Wart vs tag right zygoma B07.9 ??? SK (seborrheic keratosis) L82.1 ??? Multiple nevi D22.9 ??? Seborrheic keratosis, inflamed L82.0 ??? Milia L72.0 Surgical history (not listed above): Past Surgical History Procedure Laterality Date ??? Created by interface Entered not Verified Procedure Date: 03/28/2010 ??? Created by interface VASECTOMY Procedure Date: Unknown * hernia repair Physical Limitations: None Do You Take [] aspirin [] Plavix [] Coumadin [] Other blood thinners/anti- platelet medications [x] None List Other Medications (prescription and over the counter including vitamins): No current outpatient prescriptions on file. No current facility-administered medications for this visit. Medication Allergies: No Known Allergies Occupation: (former if retired) [employer] Marital Status [] S [x] M [] D [] W [] Dentures [] Glasses [] Contact Lenses Smoking No Packs/day None Alcohol Yes How much Occ Physical Exam BP 137/101 mmHg Pulse 66 Resp 16 General: Pleasant, well-appearing, in no acute distress. Skin:Limited examination of left nasal ala reveals a 3 mm atrophic papule. Assessment and Plan 1. Basal cell carcinoma - left ala Reviewed treament options including wide local excision, Mohs micrographic surgery, electrodesiccation and curettage, and radiation therapy. Reviewed reconstruction options including second intention healing, linear repair, local flap, fullthickness graft, and repair by Plastic Surgery or any other physician of the patient's choosing. The patient has elected to proceed with Mohs surgery. The patient has elected to have the post-Mohs defect repaired by us, and understands and acknowledges the risk of scarring. Discussed importance of sun protection, sun avoidance strategies, protective clothing, and sunscreen. I, Shilpa Pabon LPN, am documenting this encounter acting as a scribe for and in the presence of Dr. Andre. I performed the above scribed services and agree with the accuracy of the documentation in this encounter. Luis Armando Andre MD documented in this encounter Plan of Treatment Not on file documented as of this encounter Visit Diagnoses Diagnosis BCC (basal cell carcinoma), face Basal cell carcinoma of skin of other and unspecified parts of face documented in this encounter Care Teams Spring Former Machine Relationship Specialty Start Date End Date Jen Shelley MD [address] [place] [address] PCP - General 12/09/14 01/26/20 documented as of this encounter
--- OUTSIDE RECORDS SUMMARY | 2024-01-23 16:41 | XMS_ITS | Encounter Summary ---
Author Organization [facility] Address [facility] [place] [address] Care Team Providers Care Outsole Scheduler Name Role Phone Unavailable Primary Care Provider Unavailabl e Encounter Details Date Type Department Care Team (Late st Contact Info) Description 01/27/2020 3:00 PM EST Office Visit Dermatology at [facility] [address] [place] [address] Jayce Crespo MD [address] [facility] [place] [address] Multiple benign nevi of upper extremity, lower extremity, and trunk; Dhaliwal angioma; Seborrheic keratoses; Lentigines; Dermatofibroma; Sebaceous gland hyperplasia of face; History of basal cell carcinoma (BCC) Social History Tobacco [...] Progress Notes * Jayce Crespo MD - 01/27/2020 3:00 PM EST Images from the original note were not included. Dermatology Dermatology at [facility] FOLLOW-UP This is a moderate risk patient who returns for re-evaluation of recurrence of skin cancer and development of new skin cancers. Chief Complaint: skin exam History of Present Illness Frankie Monahan is a 54 y.o. male with history of skin cancer who is concerned about the following: ?? No known recurrence previous cancer sites. ?? No other suspicious lesions. Requests full body skin cancer screening. Interval changes to Medications and Medical, Family and Social Histories (including alcohol and tobacco use) Since Last Visit 05/18/2017: No significant interval history. Skin Cancer History Mid chest, left of midline, BCC C&E Oct 2016 Left ala, BCC biopsied Nov 2014 - unable to find at time of Mohs and elected to monitor Allergies Patient has no known allergies. Medications currently has no medications in their medication list. Review of Systems Significant for no pertinent and acute changes in constitutional, other skin systems upon specific queries. Examination Standby: Tatiana Hawley is appropriate. Well developed, well-nourished in no apparent distress, alert and oriented to time, person, place and situation. Patient was asked to disrobe to the level of comfort. Examination of the head - including the scalp, face, ears, nose, lips, tongue, oral mucosa - neck, chest, abdomen, back, axillae, buttocks, pubicarea, upper and lower extremities, including the nail plates, significant for the following: ?? Well-demarcated, round or oval, servin or brown macules and papules with benign morphology on the head, neck, trunk, pubic area, buttocks, and extremities ?? Multiple, dhaliwal red 1-4mm papules on the head, trunk, and extremities ?? Scattered, stuck-on, well-demarcated, servin or brown, waxy or warty papules c/w SKs on the head, neck, trunk, and extremities ?? Severe??sun-damage on sun-exposed areas including irregular servin macules on sun-exposed areas andepidermal thinning with dyspigmentation and/or telangectia sun-exposed areas of the neck, chest. ?? Firm papule with dimple sign c/w DF on the left anterior ankle ?? 2-3mm yellow-hued, cauliflower-like umbilicated papules c/w sebaceous hyperplasia on the face ?? No evidence of recurrence in scars on the left ala and mid chest. Assessment and Plan Nevi Morphology reassuring for benign nevi. Counseled: Nevi and risks for melanoma arising in a nevus. Recommend regular self-examinations. Answered all questions. Reviewed ABCDEs of melanoma, as below. ??? Return to clinic as needed for changes in color, size, shape or thickness or should bleeding orother symptoms occur. Patient agrees to plan. Dhaliwal Angiomas Counseled: dhaliwal angiomas. Benign. No treatment necessary unless symptoms develop. Handout given. Seborrheic Keratoses Benign. No treatment necessary. Counseled: SKs, benign, treatment options for symptomatic lesions. Answered all questions. Handout given Solar Damage, including Lentigines Benign but evidence of moderate chronic sun damage. Counseled: risks for skin cancer, thinning of skin. Discussed lentigines, sun damage and spontaneous development, rare risk of lentigo maligna (melanoma arising in a lentigo), sun protection, no treatment necessary but discussed cosmetic options, including topical bleaching agents, as well as chemical peels and lasers. Answered all questions. Handout on lentigines and sun protection given to the patient. Dermatofibroma Counseled: Dermatofibromas, benign/non-cancerous growth of dermal dendritic histiocyte cells, commonly arise at site of a minor injury and etiology is unknown. Answered all questions. Handout given. Sebaceous Gland Hyperplasia Counseled: benign growths of sebaceous glands (hair follicle unit) that harbor a rare risk of sebaceous carcinoma. Handout given. Answered all questions. History of Skin Cancer No evidence of recurrence. Patient Counseled [Skin Cancer] Counseled: sun protection, regular self skin exams, provider skin exams every 12 months, and the ABCDEs of melanoma/NMSC. Answered all questions. Handouts on how to do a self-exam, skin cancers and sun protection given to the patient. Follow-up: Skin cancer screening in 12 months or return to clinic prn for new suspicious lesions orif changes/symptoms in existing lesions develop. Note initiated by LIZETH Amador has performed the documentation for this encounter in the presence of and acting as a scribe for Dr. Crespo. I performed the above scribed service and agree with the accuracy of the documentation in this encounter. MD [place] Department of Dermatology [facility] documented in this encounter Plan of Treatment Not on file documented as of this encounter Visit Diagnoses Diagnosis Multiple benign nevi of upper extremity, lower extremity, and trunk Dhaliwal angioma Nevus, non-neoplastic Seborrheic keratoses Lentigines Other dyschromia Dermatofibroma Benign neoplasm of skin, site unspecified Sebaceous gland hyperplasia of face Other specified disease of sebaceous glands History of basal cell carcinoma (BCC) documented in this encounter
--- OUTSIDE RECORDS SUMMARY | 2024-01-23 16:41 | XMS_ITS | Encounter Summary ---
Author Organization [facility] Address [facility] [place] [address] Care Team Providers Care Debarker Operator Name Role Phone Karthikeyan Phillips MD Primary Care Provider [phone] Reason for Visit * Consultation (Routine) - Closed Specialty Diagnoses / Procedures Referred By Daniel bhatt Referred To Contact Dermatology Diagnoses Nodular basal cell carcinoma (BCC) Jayce Crespo MD [address] [place] [address] Rafa Renteria MD [facility] [place] [address] Referral ID Status Reason Start Date Expiration Date V isits Requested Visits Authorized [id number] Closed Consult, Test & Treat 12/08/2022 12/08/2023 1 1 Encounter Details Date Type Department Care Team (Latest Contact Info) Description 01/17/2023 8:00 AM EDT Procedure visit Dermatology at 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 Your wound(s) was repaired by rfjx-up-isty stitchescalled a primary repair. You do not need to come back for suture removal because only absorbable sutures were used today. If the absorbable sutures bother your skin or do not absorb after 2 weeks, you may call us to remove them for you. Instructions are as below. Please keep this as a reference: Wound Care For wounds closed with absorbable-only stitches: Gently remove your initial bandage (after 48 hours from surgery) and begin wound care as below. If your initial bandage only lasts 24 hours (for example, falls off sooner), this is okay. Resume your wound care and bandaging instructions as below. Change your bandage once a day (and whenever it becomes wet or soaks through). DO WOUND CARE FOR ONE WEEK. For bandage changes: Wash hands with soap and water, or use gloves that you can purchase a local pharmacy or drug store. Clean the surgical area with cotton-tipped swabs or gauze dipped in soapy water (recommend liquid soap in clean room temperature water). Do not scrub the area or put direct shower water pressure ontoyour wound. It is okay to allow soapy water to run over your wound in the shower. If you cannot remove crusted areas, you may soak with wet gauze first for 15 to 20 minutes to help soften it. Pat the area dry with clean gauze or cotton swabs. Do not rub. Use a cotton swab to apply a generous layer of petroleum jelly over the incision lines . Cover with clean nonstick gauze or other nonstick dressing, such as Telfa. Secure with paper tape Discontinue wound care after 7 days. If any portion of the incision was left open to heal on its own, continue to apply Vaseline daily until healed. Allow the absorbable stitches to heal. If the top stitches that are absorbable are irritating your skin, you may call us to have them removed. Otherwise, they will be absorbed naturally in approximately 2 weeks. It may absorb as quickly as 4 days. Keep in mind that if you do not want to use a bandage at all due to difficulty, allergies, irritation of skin, cost, time, or inconvenience --- you can certainly avoid bandages altogether. However, it is imperative that you continue with topical petrolatum ointment or Aquaphor (plain, fragrance-free). This may need to be applied several times daily if it gets wiped off, washed off, or dries out. Things to purchase for wound care: -Nonstick gauze -A tube or tub of petrolatum jelly (fragrance-free, no dye, not lotion) -paper tape -cotton swabs -gloves (optional) -Dial or other antibacterial liquid soap After Surgery If you are a tobacco user please attempt to decrease the amount of tobacco products used following surgery for 1-2 weeks. Limit alcohol intake to one drink per day for the next 3 days. Do not participate in athletic activities for 5-7 days, unless you were told a different timeline during your visit. Athletic activity is a relative term, but this is considered to be anything that could potentially raise your heartrate or blood pressure. Elevating your heart rate and blood pressure increases the risk of swelling, bleeding, wound opening, and it could lead to worse scarring. Walki ng at a leisurely pace is fine for most people, but not if you are walking for the purpose of exercise. When in doubt, take it easy or call us. Do not lift anything heavier than 10 pounds for 5-7 days postoperatively. Some pediatric dental assistant may need to be delayed or delegated such as vacuuming, mowing the lawn, snow shoveling, or caring for young children that need to be carried/lifted. Working any major muscle groups increases your heart rate and can increasing bleeding. Avoid swimming, hot tubs, and direct water pressure for 3 weeks after surgery. You may shower, however, once your initial bandage comes off in 48 hours. Avoid antibiotic ointments such as triple antibiotic creams. Stick with your wound care instructions, please. Whenever possible, it is helpful to take photographs with your camera or cell phone of any problemsor concerns you see with your wound. We often ask for photos when you call with questions. Starting 2 months following surgery, you can begin firm massage to any areas of firm scar along your incision to soften the scar and reduce bumpiness. Do this 3 times per day, 3 minutes each time. Donot start massage before 2 months. Your wound will appear almost completely healed soon after sutures are removed (about 1 week), but incisions can remain bright red for several weeks. Then the scarring and healing process continues under the skin for 6 months until to 2 years. The scar may become less red, less firm, and more subtle during this time; please note that the rate of improvement varies depending on the person. Most redness, discoloration, bumpiness resolves by 6 months, and most patients will look presentable withina few weeks after surgery. Keep your follow-up appointments and make sure to continue to have your skin checked, as often as is recommended by your recovery unit operator, for new skin cancers. This is once per year for most patients. Your can expect your scar to be red for several weeks with gradual fading of the redness. Your scarwill also be raised and lumpy until the dissolvable sutures under the skin get absorbed by your body which can take 3-4 months. The scar will flatten eventually. If you have a skin condition called rosacea, the redness can last long-term, or you can get an increased appearance of red vessels to the skin. The appearance of vessels slightly improves, but tends to respond well to laser treatments. Occasionally, about 20% of the time on the face, the stitches under the skin can spit out of the incision to the surface. It can start out looking like a pimple or blemish directly on your incision. Sometimes you can feel something poking through the incision. it can look also minic a small area of infection, so please let us know before you go to another provider for antibiotics. This means that the suture may need to be trimmed or removed when you return for your wound check. This typically occurs a few weeks after surgery if it does occur. To optimize your scar, and best cosmetic result, please avoid direct sunlight to your incision for the first 6 months following surgery. UV ray exposure to your incision may cause the redness to lastlonger, or to cause permanent darkening of your scar. You can avoid sun by covering your incision with a bandage when outdoors, wearing broad-rimmed hats, and wearing SPF 30 to 50 sunscreen (broad spectrum). Any time you have skin surgery or any type of surgery, you can experience mild sensation loss (numbness) in the area of surgery. Massage starting at 8 weeks after surgery can help. Swelling and bruising is common, and expected, especially if your surgery site was on the forehead,cheeks, temples, nose, or eyelids. . Sometimes it can be quite profound, where the eyelids swell shut, or getting black eyes. This is especially true if you are on blood thinners such as aspirin. Swelling and bruising will peak at about 48 hours after surgery. Bruising and swelling will graduallyresolve. You can use ice packs or a bag of frozen peas for 15-20 minutes, 20 minutes off, up to 3-4times daily to areas of swelling on the face. Use caution not to put the icy item directly onto your incision, or directly in contact with your skin as this can damage skin. Avoid prolonged use more than 20 minutes. The best way to use ice packs is over the bandage, or using a light cloth/paper towel barrier between the ice pack and your skin. You can ice for as many days as needed until swellinghas resolved. Eyelid and lip swelling is typically the last type of swelling to resolve. Antibiotics: NONE If you were given antibiotic prescription, it is important to start them the evening of your surgery date. However, most patients do not need antibiotics after surgery. For pain: Most patients of different ages do not require pain medications. If you do feel soreness, throbbingor sharp pains, start by taking over the counter extra strength acetaminophen (up to 3000 mg in a 24 hour period). Generally, we like you to avoid NSAIDS (non-steroid anti-inflammatory drugs such as ibuprofen) for the first 48 hours after surgery as this can increase risk of bleeding. However, if acetaminophen is not helping with pain, you can alternate acetaminophen with iburpofen or other NSAID. Ice packs over your bandage without getting your bandage wet can also help with pain and swelling.Frozen peas work well as ice packs. THIS IS AN EXAMPLE OF A PAIN TREATMENT SCHEDULE: 1) You can take 500 mg acetaminophen one tablet by mouth at 6:00pm. This is over the counter. 2) You can take 400 mg of ibuprofen two hours later, at 8:00 pm, or other NSAID such as naproxen, as long as it does not interact with your other medications and your other doctors have not told you to avoid this. This is over the counter. Check to see how many milligrams (mg) each of your ibuprofen tablets are. Most of the time, ibuprofen comes in 200 mg tablets, so 400 mg would mean taking two of these tablets or capsules. 3) You can take 500 mg of acetaminophen at 10:00 pm. Keep track of your total acetaminophen in a 24hour period as your maximum should be 3000 mg total in a 24 hour period of this medication. 4) At midnight, you can take another 400 mg of ibuprofen. 5) you can continue on this schedule over the next 2 days, making sure to keep tabs of your total acetaminophen. If you are still in pain after trying the above, please call us. When to call your surgeon: Fever of 100.4 degrees Fahrenheit or higher Bleeding not controlled with direct firm pressure to your wound. Bleeding is most common in the first 48 hours. Pain that is worsening and not relieved by over the counter medications such as acetaminophen (up to 3000 mg in a 24 hour period) Wound reopening after stitching Pus or bad odor from your wound Worsening redness and warmth around your wound If you think your surgery site is infected, please call us before seeking care or antibiotics from other providers Please call us before seeking care in an emergency room or primary care. If you do call, please leave your full name, phone number, date of , date of surgery, and medical record number if you have it. If after hours, please call the oxygen furnace operator or [phone] and ask for the recovery unit operator on-call. If you have any non-urgent questions or concerns, please feel free to call my office or contact me through our patient portal, [employer], at [email or web address] How to contact us during business hours [facility]: Mohs scheduling or Mohs follow-up appointments: [phone] documented in this encounter Progress Notes * Rafa Renteria MD - 01/17/2023 8:00 AM EDT Images from the original note were not included. Summary of Procedure(s): Site: Left Preauricular Tumor Type: Basal Cell Carcinoma,nodular Stages to clear tumor: One Stage Repair: Intermediate Linear Closure Images: The patient was asked to call with any issues and is aware that I am available / should questions arise. Rafa Renteria MD Mohs Micrographic Surgery and Dermatologic Oncology Department of Dermatology Please note that I have reviewed the preoperative checklist from today's nursing visit including relevant social history and medications. I have reviewed the preoperative photos if available and the biopsy report. VITAL SIGNS: BP 134/83 Pulse 71 PHYSICAL EXAMINATION: General: patient is awake, alert, oriented and in no acute distress. Skin: Focused examination of surgical site(s) performed which shows a well healed biopsy site. PHYSICIAN REVIEW OF REPORTS, RECORDS, IMAGES: 1) The accompanying pathology report(s) associated with aforementioned biopsy slide(s) were/was also reviewed. Assessment: Frankie Monahan is a 57 y.o. male presenting for: 1. Biopsy-proven BCC located on the L preauricular cheek. Plan: 1. Findings from the biopsy report, today's clinical exam, and other pertinent details were reviewed with patient today. All questions were answered. 2. Discussed treatment options based on the above findings. We recommended Mohs micrographic surgery for treatment of this tumor. Mohs micrographic surgery was indicated due to patient, site and/or tumor characteristics (see operative report for specific indication). 3. We discussed risks, benefits, and alternative treatment options to the Mohs micrographic surgeryprocedure and pertinent information including but not limited to the following: Risks include bleeding, infection, scar, recurrence, incomplete tumor removal or inability to cure with surgery alone if the tumor features are more aggressive than the initial pathology indicates. Occasionally, additional adjuvant treatments may be recommended. Additional risks include large wound, prolonged wound and healing, pain, swelling, bruising, increased appearance of vessels or worsening erythema of baseline skin; more rarely risks include damage to underlying structures such as nerves, cartilage, or muscle which could lead to temporary or permanent loss of sensation or motor function. Benefit is precise tumor removal If reconstruction is performed, it is specific to the patient and defect. Discussed that the shape, size, depth of the wound is often not known until the tumor is cleared and thus the reconstruction options are sometimes not known until after tumor clearance. Occasionally,referrals to other providers may be recommended for reconstruction based on patient preference and need. Reviewed the pros and cons of common reconstructions used for this tumor type, size, and location, and that reconstruction may lead to change in appearance. Natural history of scar was discussed, including that the scar will continue to mature for 1-2 years. Recommended avoidance of special ointments or scar creams, and avoidance of direct sun exposure to the scar for optimal recovery. Reviewed that there are some aspects of cosmesis that are dependent on patient's characteristics such as age, skin laxity/texture factors, inflammatory skin diseases such as rosacea, prior surgery/radiation, degree of actinic damage, smoking status, strength of the patient's immune system, diligentwound care, medications, and genetics. Having Mohs surgery may lead to physical limitations for optimal healing, such as restricted physical activity and heavy lifting. 4. Signs and symptoms of skin cancer reviewed. Patient to report any new, changing, or symptomatic lesions and follow up with his or her recovery unit operator or other skin provider. 5. Discussed avoiding direct sun exposure to scars for best cosmetic result. Note initiated by KARTHIKEYAN CHRISTIANSON LPN has performed the documentation for this encounter in the presence of and acting as a scribe for Dr. Renteria I performed the above scribed service and agree with the accuracy of the documentation in this encounter. Reviewed and signed by: Rafa Renteria Dermatology [facility] * Rafa Renteria MD - 01/17/2023 8:00 AM EDT Mohs micrographic Surgery Operative Report Patient name: Frankie Monahan : 1965 Date: 01/17/2023 Staff Surgeon and Pathologist: Rafa Renteria MD Nursing/Driver(s): , Karthikeyan Christianson LPN, Inspector Welded Parts (s): Cris De La Rosa Pre-operative diagnosis: Basal Cell Carcinoma,nodular Post-operative diagnosis: Basal Cell Carcinoma,nodular Location/Site:Left Preauricular Procedure: Mohs micrographic surgery Indication(s) for Mohs micrographic surgery: Anatomic location for tissue conservation Stages: 1 Preoperative size of tumor: 0.6 x 0.6 cm Stage I The nature and purpose of the procedure, associated risks, possible consequences and complications,and alternative forms of treatment were explained in detail. We reviewed the possible repairs basedon the clinical appearance of tumor but discussed that often the repair options may not be known until the tumor has irena extirpated. Informed consent and permission to take photographs were obtained. The site was confirmed with the patient/authorized representative personal service/referring physician and/or a photograph form time of biopsy. A pre-operative time-out (procedural pause) was conducted with no unresolved discrepancies noted. Local anesthesia was obtained with 0.5 % lidocaine with 1:200,000 epinephrine. The surgical site was prepped and draped in the usual sterile manner. A 1-2 mm margin was excised around clinically evident tumor as a complete layer. Hemostasis was achieved by electrocoagulation. The excised tissue was oriented and divided into 2 sections, chromacoded, and submitted for frozen sections. The patient tolerated the procedure well and without complications. On my personal microscopic evaluation of the frozen sections, no residual tumor was identified on the deep or outer border of the sections. The final size of the defect after complete tumor removal was 1.0 x 0.9 cm, extending to level of subcutaneous tissue. Repair Operative Report Clinical Diagnosis: 1.0 x 0.9 cm surgical defect secondary to Mohs microscopically controlled excision Location/Site: left Preauricular Indication: repair of wound for anatomic/functional baptist Procedure: Intermediate linear closure of Mohs defect Diesel Fitter Mechanic: Karthikeyan Christianson LPN Due to the size and location of the defect resulting from the complete removal of the tumor, the postoperative risk of hemorrhage, infection, and the possibility of serious deformity from scarring, and in order to restore proper function and prevent loss of function, the defect was closed in the following manner. The nature and purpose of the procedure, associated risks, possible consequences, complications andalternative methods of treatment were explained to the patient in detail. An informed consent was obtained. The operative site was anesthetized with 0.5% lidocaine with 1:200,000 epinephrine. The site was prepped and draped in the usual sterile manner. Moderate undermining of the surrounding tissuewas performed for tension free closure as necessary and redundant tissue excised. The deep tissues were apposed and sutured with 4-0 Monocryl sutures and the epidermal edges were approximated with 4-0 Fast Absorbing Gut running and/or interrupted sutures. The resulting intermediate linear closure measured 2.7 cm. The surgical site was cleaned and white petrolatum with a pressure dressing was applied. The patient tolerated the procedure well and without complications and was given both verbal and written instruction on postoperative wound care. Follow up as needed. The patient was discharged in good condition. Total local anesthesia with 0.5 % lidocaine with 1:200,000 epinephrine used: 9cc Total local with 0.25% bupivacaine with 1:100,000 epinephrine used: None Note initiated by KARTHIKEYAN CHRISTIANSON LPN. KARTHIKEYAN CHRISTIANSON LPN has performed the documentation for this encounter in the presence of and acting as a scribe for Dr. Renteria. I performed the above scribed service and agree with the accuracy of the documentation in this encounter. 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
--- OUTSIDE RECORDS SUMMARY | 2024-01-23 16:41 | XMS_ITS | Encounter Summary ---
Author Organization [facility] Address [facility] [place] [address] Care Team Providers Care Client Liaison Name Role Phone None Primary Care Provider Unavailabl e Reason for Visit * Reason Onset Date Comments Pre Procedure Call 01/09/2023 Encounter Details Date Type Department Care Team (Late Contact Info) Description 01/09/2023 Telephone Dermatology at [facility] [address] [place] [id number] Bety Wan RN Pre Procedure Call Social History Tobacco Use Types Packs/Day Years [...] on file documented as of this encounter Miscellaneous Notes * Telephone Encounter - Bety Wan RN - 01/09/2023 4:37 PM EDT Mohs consultation and preoperative note (H&P) Patient Name: Frankie Monahan Age: 57 y.o. Date of : 1965 Today's Date: 01/09/2023 REFERRING PROVIDER: Jayce Crespo MD CC: Mohs micrographic surgery for treatment of a cutaneous tumor HPI: Frankie Monahan is a 57 y.o. male presenting for biopsy-proven basal cell carcinoma, nodular type,location on the left preauricular cheek. The dermatologic preoperative information sheet was reviewed with pertinent positive and negative as below. DERMATOLOGIC PRE-OPERATIVE EVALUATION AND REVIEW OF SYSTEMS History of Mohs surgery? no Pacemaker/Defibrillator? no Joint replacement or other implantable devices (e.g. Cochlear implant)? If yes then when? no Do you take a blood thinner? No History of organ transplant? no History of artificial valve or stroke? no History of liver disease or bleeding disorder? no Do you have any medical problems that may affect your upcoming surgery? no Do you have any concerns regarding your upcoming surgery? no SOCIAL HISTORY: Makes Own Decisions: Yes Hearing aid or other devices: No Relevant travel history or future plans: none Tobacco use (amount per day, type of tobacco): no Do you have any physical limitations that may affect your surgery?: no ALLERGIES: Allergies reviewed MEDICATIONS: Medications reviewed documented in this encounter Plan of Treatment Not on file documented as of this encounter Visit Diagnoses Not on filedocumented in this encounter Care Teams Client Liaison Relationship Specialty Start Date End Date None None PCP - General 08/02/21 01/16/23 documented as of this encounter
--- OUTSIDE RECORDS SUMMARY | 2024-01-23 16:41 | XMS_ITS | Encounter Summary ---
Author Organization [facility] Address [facility] [place] [address] Care Team Providers Care Design Drafter Name Role Phone None Primary Care Provider Unavailabl e Encounter Details Date Type Department Care Team (Late st Contact Info) Description 08/02/2021 4:00 PM EDT Office Visit Dermatology [facility] [address] [place] [address] Jayce Crespo MD [address] [facility] [place] [address] Multiple benign nevi of upper extremity, lower extremity, and trunk; Dhaliwal angioma; Seborrheic keratoses; Lentigines; History of basal cell carcinoma (BCC); Onychomycosis Social History Tobacco Use Types Packs/Day Years [...] Progress Notes * Jayce Crespo MD - 08/02/2021 4:00 PM EDT Images from the original note were not included. DEPARTMENT OF DERMATOLOGY Medical Dermatology Clinic Provider: Jayce Crespo MD FAAD at Dermatology [facility] Patient's preferred name Frankie PAST MEDICAL HISTORY (if blank, patient denies history) Melanoma - Dysplastic nevi - SCC - BCC Mid chest, left of midline, BCC C&E??Oct 2016 Left ala, BCC biopsied Nov 2014 - observation [place] [] cryotherapy [] efudex [] PDT [] Other Relevant Medications [] Immunosuppression [] Transplant [] Oncogenic medication [] Nicotinamide 500mg po bid Allergic Contact History Allergens: - Other relevant history - FAMILY HISTORY (if blank, patient denies history) Melanoma - NMSC - Other relevant history - SOCIAL HISTORY Occupation: History of Present Illness: Frankie Monahan is 55 y.o. and here for the following: ??? Patient denies any pruritic, painful, bleeding, nonhealing, or growing/changing lesions of concern today. ??? No known recurrence of cancer sites ??? Requests skin cancer screening Medications: Reviewed in eD-H Allergies: Reviewed in eD-H Skin Examination Standby: Saba Ramirez, RELEASE OF INFORMATION SPECIALIST Well developed, well-nourished in no apparent distress, [...] plates, significant for the following. Exam Findings/Assessment/Plan Nevi Well-demarcated, round or oval, servin or brown macules and papules with benign morphology on the head, neck, trunk, pubic area, buttocks, and extremities Morphology reassuring for benign nevi. Counseled: Nevi and risks for melanoma arising in a nevus. Recommend regular self-examinations. Answered all questions. Reviewed ABCDEs of melanoma, as below. ??? Return to clinic as needed for changes in color, size, shape or thickness or should bleeding orother symptoms occur. Patient agrees to plan. Dhaliwal Angiomas Dhaliwal red papules on the head, trunk, axillae and extremities Counseled: dhaliwal angiomas. Benign. No treatment necessary unless symptoms develop. Treatment considered cosmetic and [id number]. Treatment options, including but not limited to electrocautery, discussed. Handout given. Seborrheic Keratoses Scattered, stuck-on, well-demarcated, servin or brown, waxy or warty papules c/w SKs on the head, neck, trunk, axillae and extremities Benign. No treatment necessary. Counseled: SKs, benign, treatment options for symptomatic lesions. Answered all questions. Handout given. Lentigines Multiple, uniformly servin, slightly irregular, polygonal macules c/w lentigos on sun-exposed areas ofskin Benign. Counseled: lentigines, sun damage and spontaneous development, rare risk of lentigo maligna (melanoma arising in a lentigo), sun protection, no treatment necessary but discussed cosmetic options, including topical bleaching agents, as well as chemical peels and lasers. Answered all questions. Handout given. Onychomycosis 4 out of 10 thickened nail plates of the toes Favor dermatophyte infection over trauma. ? ? Counseled: fungal infections of the nail plates, dermatophyte > yeast, risk for more seriousinfections and complications a/w diabetes, limitations of diagnostic testing with culture and/or PAS stain, prognosis, risk for recurrence after treatment regardless of topical or systemic, and treatment options, including but not limited to ciclopirox lacquer, topical Jublia for almost a year daily therapy, and systemic antifungals for >2 months. Decreased efficacy the thicker the nail. Discussed major risk of liver failure associated with systemic antifungal therapy, especially terbinafine. Answered all questions. Patient declines treatment at the time. History of Skin Cancer No clinical evidence of recurrence in scars, as listed above ??? Recommend regular evaluation of scars ??? Return to clinic if suspect recurrence. Patient agrees to plan. ?? Patient Counseled [Skin Cancer] [] History of skin cancer [] History of immunosuppression [] History of extensive sun exposure [] Family history of skin cancer Counseled: recommend sun protection, regular self skin exams, provider skin exams every 12-24 months, and the ABCDEs of melanoma/NMSC. Answered all questions. Handouts on how to do a self-exam, skin cancers and sun protection/recommended OTC sunscreens given to the patient. Joint decision for skin cancer screening in 24 months. ?? Regular full body self examinations and return to clinic for new suspicious lesions or if changes/symptoms in existing lesions develop. Follow-up: July 2023 for a FSE . Return sooner as needed for suspicious lesion, new or worsening dermatitis. [x] Recall placed [] Forwarded to in processing instructor [] Patient scheduled before exiting Scribe attestation: LEONARD Maldonado has performed the documentation for this encounter in the presence of and acting as a scribe for MD INDIA Coulter. I performed the above scribed service and agree with the accuracy of the documentation in this encounter. Reviewed and signed by: Jayce Crespo MD FAAD Dermatology [facility] documented in this encounter Plan of Treatment Not on file documented as of this encounter Visit Diagnoses Diagnosis Multiple benign nevi of upper extremity, lower extremity, and trunk Dhaliwal angioma Nevus, non-neoplastic Seborrheic keratoses Lentigines Other dyschromia History of basal cell carcinoma (BCC) Onychomycosis Dermatophytosis of nail documented in this encounter Care Teams Design Drafter Relationship Specialty Start Date End Date None None PCP - General 08/02/21 01/16/23 documented as of this encounter
--- OUTSIDE RECORDS SUMMARY | 2024-01-23 16:41 | XMS_ITS | Encounter Summary ---
Author Organization [facility] Address [facility] [place] [address] Care Team Providers Care Crisis Worker Name Role Phone None Primary Care Provider Unavailabl e Encounter Details Date Type Department Care Team (Late st Contact Info) Description 03/28/2010 3:15 PM EST [place] [address] Dakotah Bailey III, MD [facility] [address] [place] [address] Discharge Disposition: Home Social History Tobacco Use Types Packs/Day Years Used Date Smoking Tobacco: Never Assessed Sex and Gender Information Value Date Recorded Sex Assigned at Not on file Gender Identity Not on file Sexual Orientation Not on file documented as of this encounter Plan of Treatment Not on file documented as of this encounter Visit Diagnoses Not on filedocumented in this encounter Care Teams Crisis Worker Relationship Specialty Start Date End Date None None PCP - General 02/08/10 12/08/14 documented as of this encounter
--- OUTSIDE RECORDS SUMMARY | 2024-01-23 16:41 | XMS_ITS | Encounter Summary ---
Author Organization [facility] Address [facility] [place] [address] Care Team Providers Care Medical Claims Specialist Name Role Phone Tatum Phililps MD Primary Care Provider [phone] Encounter Details Date Type Department Care Team (Latest Contact Info) Description 12/17/2023 Travel Social History Tobacco Use Types Packs/Day [...] on filedocumented in this encounter Care Teams Medical Claims Specialist Relationship Specialty Start Date End Date Tatum Phillips MD [address] [place] [address] PCP - General Family Medicine 01/17/23 documented as of this encounter
--- OUTSIDE RECORDS SUMMARY | 2024-01-23 16:41 | XMS_ITS | Encounter Summary ---
Author Organization [facility] Address [facility] [place] [address] Care Team Providers Care Manager Hotel Name Role Phone Jen Shelley MD Primary Care Provider Reason for Visit * Reason Comments Basal Cell Carcinoma Encounter Details Date Type Department Care Team (Late st Contact Info) Description 02/09/2015 8:30 AM EST Procedure visit Dermatology at [facility] [address] [place] [address] Luis Armando Andre MD [facility] [address] [place] [address] BCC (basal cell carcinoma of skin) Social History Tobacco Use Types Packs/Day Years Used Date Smoking Tobacco: Never Comments:quit many years ago . [...] Sign Reading Time Taken Comments Blood Pressure 137/86 02/09/2015 8:43 AM EST Pulse 64 02/09/2015 8:43 AM EST Temperature - - Respiratory Rate 17 02/09/2015 8:43 AM EST Oxygen Saturation - - Inhaled Oxygen Concentration - - Weight - - Height - - Body Mass Index - - documented in this encounter Progress Notes * Luis Armando Andre MD - 02/09/2015 9:13 AM EST Patient presents for Mohs surgery for basal cell carcinoma of the left nasal ala. Both myself and the patient were unable to confidently identify the biopsy site. Recommend clinical monitoring. Patient agreed. Mr. Monahan was advised to call if he notices any evidence of recurrence. He states he will be leaving June 2015 for [place] [employer], as he is in [employer], and will likely bestationed there for a period of 12-18 months. 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 I, Shilpa Pabon, has performed the documentation for this encounter in the presence of and acting as a scribe for LUIS ARMANDO ANDRE MD. I performed the above scribed service and agree with the accuracy of the documentation in this encounter. Luis Armando Andre MD documented in this encounter Plan of Treatment Not on file documented as of this encounter Visit Diagnoses Diagnosis BCC (basal cell carcinoma of skin) Basal cell carcinoma of skin, site unspecified documented in this encounter Care Teams Manager Hotel Relationship Specialty Start Date End Date Jen Shelley MD [address] [place] [address] PCP - General 12/09/14 01/26/20 documented as of this encounter
--- OUTSIDE RECORDS SUMMARY | 2024-01-23 16:41 | XMS_ITS | Encounter Summary ---
Author Organization [facility] Address [address] [place] [address] Care Team Providers Care Intern Name Role Phone Tatum Phillips MD Primary Care Provider [phone] Encounter Details Date Type Department Care Team (Late st Contact Info) Description 07/23/2020 Lab Requisition [facility] Pathology & Laboratory Medicine - [address] [address] Onelia Edwards, DO [address] [place], [place] [id number] Encounter for screening for malignant neoplasm of colon Social History Tobacco Use Types Packs/Day Years [...] on file documented as of this encounter Procedures Procedure Name Priority Date/Time Associated Diagnosis Comments SURGICAL PATHOLOGY Today 07/23/2020 11 :11 EDT Encounter for screening for malignant neoplasm of colon documented in this encounter Results * SURGICAL PATHOLOGY (07/23/2020 11:11 EDT) Final Diagnosis A. RECTUM, POLYP, BIOPSY: - Colonic mucosa with focal hyperplastic change. - Deeper sections x3 examined. 07/26/2020 15:16 EDT [facility] Attestation By the signature below, the attending physician certifies that they have 1) personally conducted a gross and/or microscopic examination of the described specimen(s), and/or personally interpreted the results of laboratory testing of the described specimen(s), and 2) personally rendered or confirmed the above diagnosis. 07/26/2020 15:16 [facility] at 1516 Clinical History Colon cancer screening 07/26/2020 15:16 EDT [facility] Gross Description A. Received in formalin labelled with proper patient identification (initials P, J) and rectal polyp is a single servin tissue (0.4 x 0.3 x 0.2 cm). The specimen is submitted in A1. MANJULA DON(ASCP) 07/23/2020 16:08 07/26/2020 15:16 T [facility] Performing Lab [facility] 07/26/2020 15:16 T [facility] Scanned Images 07/26/2020 15:16 [facility] Tissue SPECIMEN FROM RECTUM / Unknown 07/23/2020 11:11 EDT 07/23/2020 15:59 EDT Onelia Edwards DO PATHOLOGY ORDERABLES [facility] [address] [place] [address] documented in this encounter Visit Diagnoses Diagnosis Encounter for screening for malignant neoplasm of colon Special screening for malignant neoplasms, colon documented in this encounter Care Teams Intern Relationship Specialty Start Date End Date Tatum Phillips MD [address] [place] [address] PCP - General 03/19/20 documented as of this encounter
--- OUTSIDE RECORDS SUMMARY | 2024-01-23 16:41 | XMS_ITS | Encounter Summary ---
Author Organization [facility] Address [facility] [place] [address] Care Team Providers Care Cnc Mill Programmer Name Role Phone Jen Shelley MD Primary Care Provider Reason for Visit * Reason Comments Skin Check Encounter Details Date Type Department Care Team (Late st Contact Info) Description 12/09/2014 4:15 PM EDT Follow-Up Dermatology at [facility] [address] [place] [address] Bekah Prieto MD [facility] [address] [place] [address] Neoplasm of unspecified nature of bone, soft tissue, and skin; Seborrheic keratosis; Benign nevus of skin Discharge Disposition: Home Social History Tobacco Use [...] as of this encounter Progress Notes * Bekah Prieto MD - 12/09/2014 4:12 PM EDT Images from the original note were not included. DERMATOLOGY - ESTABLISHED PATIENT NOTE Date of service: 12/09/2014 Frankie Monahan : 1965 CC: Spot on the nose HPI: Frankie Monahan is an established patient, last seen by Dakotah Bailey MD March 2013. Here today with the following concerns: - spot on the left side of the nose getting larger but not bleeding, present for 1 year Skin History: Actinic Keratosis No skin cancer Medical History: No past medical history on file. No meds No Known Allergies Family History:Father non melanoma skin cancer Social History: Occupation: [employer] Review of Systems: - General: Feels well. - Skin: No other skin concerns. Examination: - Constitutional: Patient was alert, well-appearing and in no noticeable distress. - Skin: A full skin examination was performed. This includes the head, neck, face and scalp including behind the ears. The chest, abdomen, back, and axillae, as well as the arms, hands, palms, fingers. Legs, feet, toes and soles were also examined. Buttocks and breasts were also examined with patient consent. Genitalia were not examined. - Skin Type: II Specific skin findings: 1. 3mm pearly papule with telangectasia on the left ala 2.diffuse 0.4-0.6cm brown papules with waxy, stuck-on appearance on the trunk 3.scattered 0.3-0.5cm, medium to dark-brown, evenly-pigmented macules and papules. All with regularpigment pattern on dermoscopy. No pigmented lesions suspicious for melanoma. Diagnosis/Assessment/Treatment Plan: 1. Fibrosis Papule vs Basal Cell Procedure: Skin biopsy by shave technique Location: left ala Discussed indications for procedure and expectations including risks and benefits. Verbal consent obtained. Skin prep with alcohol. Local anesthesia with 1% xylocaine, 1/100,000 epinephrine, 0.1 mEq/mL bicarbonate. A sample of the lesion was removed by shave technique to the level of the dermis andsubmitted to Pathology. Hemostasis obtained (AlCl and/or electrocautery). There were no complications; the pt. tolerated the procedure well. The wound was dressed. Post-procedure expectations, wound care and activity restrictions were reviewed. Follow-up based on pathology results. Sun avoidance, protective clothing and the use of SPF 30 sunscreen is advised. Observe closely for skin changes and call if such occurs. 2.Seborrheic Keratosis 3.Benign Nevi RTC: 1yr PRN if symptoms worsen or persist. Note initiated by KARTHIKEYAN CHRISTIANSON LPN. I am documenting this encounter acting as the scribe for and in the presence of Bekah Prieto MD I performed the above scribed service and agree with the accuracy of the documentation in this encounter. Reviewed and signed by: Bekah Prieto MD Dermatology [facility] documented in this encounter Plan of Treatment Scheduled Orders Name Type Priority Associated Diagnoses Orde r Schedule Skin Biopsy Dermatology Routine Neoplasm of unspecified nature of bone, soft tissue, and skin Ordered: 12/09/2014 documented as of this encounter Procedures Procedure Name Priority Date/Time Associated Diagnosis Comments SPECIMEN TO PATHOLOGY (NON-OR) Routine 12/09/2014 4:35 PM EDT Neoplasm of unspecified nature of bone, soft tissue, and skin SURGICAL PATHOLOGY REPORT Routine 12/09/2014 4:35 PM EDT documented in this encounter Results * Surgical Pathology Report (12/09/2014 4:35 PM EDT) Final Diagnosis The signing pathologist has (i) examined the relevant preparation(s) for the specimen(s) and (ii) rendered or confirmed the diagnosis(es). Accession Number: [id number] ? Location: [facility] . ?Surgical Pathology DIAGNOSIS A - Skin, left ala, shave biopsy: ?? - ??BASAL CELL CARCINOMA, NODULAR TYPE, PRESENT AT THE PERIPHERAL EDGES AND BASE OF THE SPECIMEN CR-0 12/10/14 [facility] 12/10/14 Verified by: ? Arian SAGASTUME, Garret Hare ?Dermatopatholog ist ?(Electronic Signature) The attending pathologist whose signature appears on this report has reviewed all diagnostic slides and has edited the gross and/or microscopic portion of the report in rendering the final pathologic diagnosis. CLINICAL INFORMATION Specimen Submitted: A - Skin, left ala, shave biopsy, (1) Clinical History: 3 mm Pearly papule with telangiectasia on the left ala Clinical Diagnosis: Fibrous papule versus basal cell SPECIMEN PROCESSING A - Labeled/Fixative: Patient ??'s name, formalin. Quantity/Size: Single, 0.4 x 0.4 x 0.1 cm papule. Tissue Description: Parmar and purple stained skin. Sections/Processi ng: Bisected. (T1) ??cjl 12/10/2014 6:18 PM EDT [facility] SPECIMEN FROM SKIN / Unknown 12/09/2014 4:35 PM EDT 12/09/2014 4:35 PM EDT Bekah Prieto MD PATHOLOGY/CYTOLOGY O RADHA Performing Organization Address City/[facility] Co de Phone Number [facility] [place] [address] * Specimen to Pathology (NON-OR) (12/09/2014 4:35 PM EDT) AP Specimen 12/09/2014 4:35 PM EDT 12/09/2014 4:35 PM EDT Narrative FRANKIE SANTOS - 12/09/2014 4:35 PM EDT Specimen requisition ordered. ??Separate Pathology report to follow Bekah Prieto MD PATHOLOGY/CYTOLOGY O RADHA [facility] documented in this encounter Visit Diagnoses Diagnosis Neoplasm of unspecified nature of bone, soft tissue, and skin Seborrheic keratosis Other seborrheic keratosis Benign nevus of skin Benign neoplasm of skin, site unspecified documented in this encounter Care Teams Cnc Mill Programmer Relationship Specialty Start Date End Date Jen Shelley MD [address] [place] [address] PCP - General 12/09/14 01/26/20 documented as of this encounter
--- OUTSIDE RECORDS SUMMARY | 2024-01-23 16:41 | XMS_ITS | Encounter Summary ---
Author Organization [facility] Address One [facility] [place] [address] Care Team Providers Care Manager Energy Name Role Phone Jen Shelley MD Primary Care Provider Reason for Visit * Reason Comments Skin Check Encounter Details Date Type Department Care Team (Late Contact [facility]) Description 09/20/2016 9:45 AM EDT Office Visit Dermatology at [facility] [address] [place] [address] Jayce Crespo MD [address] [facility] [place] [address] Neoplasm of uncertain behavior of skin; Actinic keratosis; History of nonmelanoma skin cancer; Dhaliwal angioma; Seborrheic keratosis; Sun-damaged skin; Dermatofibroma Social History [...] Progress Notes * Jayce Crespo MD - 09/21/2016 8:36 PM EDT [id number] ? Skin, mid chest left of midline, ?? shave biopsy: - ??Basal cell carcinoma, nodular and superficial types, extending to the peripheral??and deep specimen edges. Basal Cell Carcinoma, Chest Recommend C&E or excision with 4mm margins. Skin cancer screening in 6 months. * Jayce Crespo MD - 09/20/2016 9:45 AM EDT Images from the original note were not included. This is a high risk patient who returns for re-evaluation of recurrence of skin cancer and development of new skin cancers. Patient is established to this clinic, but new to me. Chief Complaint: Skin cancer on the nose History of Present Illness Frankie Monahan is a 50 y.o. male. History of a BCC on the left ala that has been monitored after the biopsy who reports no recurrence. Requests full body skin cancer screening. No suspicious lesions. Interval changes to Medications and Medical, Family and Social Histories (including alcohol and tobacco use) Since Last Visit 02/09/2015: No significant interval history. Skin Cancer History Left ala, BCC biopsied Nov 2014 - unable to find at time of Mohs and elected to monitor Allergies No Known Allergies Medications No current outpatient prescriptions on file. Social History Tobacco use - Never Alcohol use - 1-2 glasses of wine per month Review of Systems Significant for no pertinent and acute changes in constitutional, other skin systems upon specific queries. Examination Standby: Dorinda Mohr, Clinical Scribe Mood is appropriate. Well developed, well-nourished in no apparent distress, alert and oriented to time, person, place and situation. Skin Type: II Patient was asked to disrobe to the level of comfort. Examination of the head - including the scalp, face, ears, nose, lips, tongue, oral mucosa - neck, chest, abdomen, back, axillae, upper and lowerextremities, including the nail plates, significant for the following: ?? 7 x 6 mm pink waxy papule with arborizing vessels on the mid chest left of midline [Figure A] ?? [place], hyperkeratotic slightly irregular papule on the right denominational x 1 [Total AK: 1] Multiple, dhaliwal red 1-4mm papules on the head Scattered, stuck-on, well-demarcated, servin or brown, waxy or warty papules and plaques c/w SKs on the face, neck, trunk Well-demarcated, round or oval, servin or brown macules and papules with benign morphology on the head, trunk and extremities Severe sun-damage on sun-exposed areas including irregular servin macules on sun- exposed areas and epidermal thinning with dyspigmentation and/or telangectia sun-exposed areas of the neck, chest. Firm papule with dimple sign c/w DF on the left anterior ankle No evidence of recurrence in scar on the left ala. Images Photo taken by Georgette Crespo MD. with patient's verbal permission for use for clinical and education purposes. Figure A Procedure Shave Procedure Discussed with patient diagnostic options, including the risks and benefits of biopsy, including but not limited to recurrence, cosmesis (scar, dyspigmentation, scar spread,keloid), pain, keloid/hypertrophic scar, bleeding, infection. Patient verbally understands and elects biopsy. Allergies See above Defibrillator or Pacemaker No Time Out Performed: Full Name, , and site confirmed with patient Procedure (s) A. Shave Location (s) A. Mid chest left of midline Pre-Operative Diagnosis A. BCC v other Anesthesia: 1% lidocaine+1:100,000 epinephrine Sterile Prep Alcohol Lesion biopsied with shave technique using leann blade. Hemostasis achieved with Drysol. <1mlblood loss. No complications. Specimen(s): Placed in formalin and sent to Pathology for histologic examination. Post-op care: Vaseline, Pressure Dressing Post-operative pain: 0/10 Assessment and Plan Neoplasm of Uncertain Behavior, Mid Chest Left of Midline Wound care instructions provided. Wound care: Vaseline or antiobiotic ointment 1-2 x per day and cover with bandaid until healed. May shower and let soapy water over top. Counseled: Ddx BCC v other. Proceeded with biopsy at Patient's request. Counseled possible nature of lesions, biopsy to identify etiology, and removal options. Handout given. Plan based on pathology results. Patient can be reached at [phone] and results may be left on voicemail. Actinic Keratosis, [place] Counseled: AKs, risk for progression to SCCs, and treatment options, including observation, cryotherapy, topicals, and PDT. Answered all questions. Handout given. Total 1 treated with cryotherapy, 1 cycle at 5 seconds, after verbally discussing the disease and treatment options, cryotherapy method, expected results/course and potential adverse effects, including crusting, persistent erythema, scar, blister, pain, dyspigmentation, and recurrence. Patient verbally agreed. Patient tolerated well with no complications. Wound care instructions provided. If no resolution in 21d or if scaling recurs after initial resolution, may contact clinic for re-evaluationand management. Dhaliwal Angiomas Counseled: dhaliwal angiomas. Benign. No treatment necessary unless symptoms develop. . Handout given. Seborrheic Keratoses Benign. No treatment necessary. Counseled: SKs, benign, treatment options for symptomatic lesions. Answered all questions. Handout given Nevi Morphology reassuring for benign nevi. Counseled: Nevi and risks for melanoma arising in a nevus. Recommend regular self-examinations. Answered all questions. Reviewed ABCDEs of melanoma, as below. Return to clinic prn for changes in color, size, shape or thickness or should bleeding or other symptoms occur. Patient agrees to plan. Solar Damage, including Lentigines Benign but evidence [...] of a minor injury and etiology is unknown, prognosis, treatment options if recurs and/or is symptomatic. Return to clinic if recurs and patient would like removed. Answered all questions. Handout given. History of Skin Cancer, Left Ala No evidence of recurrence. Patient Counseled [Skin Cancer] Counseled: sun protection, regular self skin exams, provider skin exams every 12 months [more frequent if pathology shows a malignancy] , and the ABCDEs of melanoma/NMSC. Answered all questions. Handouts on how to do a self-exam, skin cancers and sun protection given to the patient. Follow-up: Based on pathology results, or if changes/symptoms in new or existing lesions develop. Patient elects to receive results as above. Skin cancer screening in 12 months or return to clinic prn for new suspicious lesions or if changes/symptoms in existing lesions develop. Note initiated by NORM LEWIS, Clinical Scribe has performed the documentation for this encounter in the presence of and acting as a scribe for Dr. Crespo. I performed the above scribed service and agree with the accuracy of the documentation in this encounter. Jayce Crespo MD FAAD Section of Dermatology [facility] documented in this encounter Plan of Treatment Not on file documented as of this encounter Procedures Procedure Name Priority Date/Time Associated Diagnosis Comments SPECIMEN TO PATHOLOGY (NON-OR) Routine 09/20/2016 10:54 AM EDT Neoplasm of uncertain behavior of skin SURGICAL PATHOLOGY REPORT Routine 09/20/2016 10:54 AM EDT documented in this encounter Results * Surgical Pathology Report (09/20/2016 10:54 AM EDT) Final Diagnosis [id number] ?Location: [facility] The signing pathologist has (i) examined the relevant preparation(s) for the specimen(s) and (ii) rendered or confirmed the diagnosis(es). . ?Surgical Pathology DIAGNOSIS Skin, mid chest left of midline, ?? shave biopsy: - ??Basal cell carcinoma, nodular and superficial types, extending to the peripheral and deep specimen edges. Electronically signed by: ??Tonny SAGASTUME, PhD, Shaun Verified: ??09/21/2016 ?Dermatopathol ogjen CLINICAL INFORMATION Specimen Submitted: A - Skin, mid chest left of midline, shave biopsy (1) Clinical History: 7 x 6 mm pink waxy papule with arborizing vessels Clinical Diagnosis: BCC v other SPECIMEN PROCESSING A - Labeled/Fixativ e: Mid chest left of midline, formalin. Quantity/Size: Single, 0.9 x 0.8 x 0.1 cm. Tissue Description: Shave of white skin. Sections/Proces sing: Inked and trisected. (T1) ??sns 09/21/2016 1:00 PM EDT [facility] SPECIMEN FROM SKIN / Unknown 09/20/2016 10:54 AM EDT 09/20/2016 10:54 AM EDT Jayce Crespo MD PATHOLOGY/CYTOLOGY O RADHA Performing Organization Address City/[facility] Co de Phone Number [facility] [place] [address] * Specimen to Pathology (NON-OR) (09/20/2016 10:54 AM EDT) AP Specimen 09/20/2016 10:5 4 AM EDT 09/20/2016 1:10 PM EDT Narrative [facility] - 09/20/2016 1:10 PM EDT Specimen requisition ordered. ??Separate Pathology report to follow Resulting Agency Comment Spec In Lab Jayce Crespo MD PATHOLOGY/CYTOLOGY O RADHA Performing Organization Address City/[facility]/[place] [address] documented in this encounter Visit Diagnoses Diagnosis Neoplasm of uncertain behavior of skin Actinic keratosis History of nonmelanoma skin cancer Personal history of other malignant neoplasm of skin Dhaliwal angioma Nevus, non-neoplastic Seborrheic keratosis Other seborrheic keratosis Sun-damaged skin Other chronic dermatitis due to solar radiation Dermatofibroma Benign neoplasm of skin, site unspecified documented in this encounter Care Teams Manager Energy Relationship Specialty Start Date End Date Jen Shelley MD [address] [place] [address] PCP - General 12/09/14 01/26/20 documented as of this encounter
--- OUTSIDE RECORDS SUMMARY | 2024-01-23 16:41 | XMS_ITS | Encounter Summary ---
Author Organization [facility] Address One [facility] [place] [address] Care Team Providers Care Director Clinical Information Services Name Role Phone Jen Shelley MD Primary Care Provider [phone] Encounter Details Date Type Department Care Team (Late st Contact Info) Description 10/11/2016 Telephone Dermatology at [facility] [address] [place] [address] Jayce Crespo MD [address] [facility] [place] [address] Social History Tobacco Use Types Packs/Day Years [...] encounter Miscellaneous Notes * Telephone Encounter - Alma Garcia LPN - 10/11/2016 10:24 AM EDT Patient returned my call to discuss pathology, BCC on the mid chest left of midline, advised patient complete removal is recommended by C&E or excision with 4mm margins, discussed. Patient electsto proceed with C&E. Transferred to secretary administrative assistant to schedule next available. Patient verbalizes understanding. Advised patient to call with any further questions or concerns. ? * Telephone Encounter - Alma Garcia LPN - 10/11/2016 10:24 AM EDT ----- Message from Jayce Crespo MD sent at 09/21/2016 8:36 PM EDT ----- [id number] ? Skin, mid chest left of midline, ?? shave biopsy: - ??Basal cell carcinoma, nodular and superficial types, extending to the peripheral??and deep specimen edges. Basal Cell Carcinoma, Chest Recommend C&E or excision with 4mm margins. Skin cancer screening in 6 months. documented in this encounter Plan of Treatment Not on file documented as of this encounter Visit Diagnoses Not on filedocumented in this encounter Care Teams Director Clinical Information Services Relationship Specialty Start Date End Date Jen Shelley MD [address] [place] [address] PCP - General 12/09/14 01/26/20 documented as of this encounter
--- OUTSIDE RECORDS SUMMARY | 2024-01-23 16:41 | XMS_ITS | Encounter Summary ---
Author Organization [facility] Address One [facility] [place] [address] Care Team Providers Care It Manager Name Role Phone None Primary Care Provider Unavailabl e Encounter Details Date Type Department Care Team (Late st Contact Info) Description 10/03/2022 Telephone Dermatology at [facility] [address] [place] [address] Jayce Crespo MD [address] [facility] [address] Social History Tobacco Use Types Packs/Day Years [...] encounter Miscellaneous Notes * Telephone Encounter - Chelsea Alegria - 10/03/2022 10:10 AM EDT Called pt in response to VM message regarding scheduling with Dr. Crespo. Left message with my direct # to call. documented in this encounter Plan of Treatment Not on file documented as of this encounter Visit Diagnoses Not on filedocumented in this encounter Care Teams It Manager Relationship Specialty Start Date End Date None None PCP - General 08/02/21 01/16/23 documented as of this encounter
--- OUTSIDE RECORDS SUMMARY | 2024-01-23 16:41 | XMS_ITS | Encounter Summary ---
Author Organization [facility] Address One [facility] [address] Care Team Providers Care Mold Shop Supervisor Name Role Phone Jen Shelley MD Primary Care Provider Reason for Visit * Reason Comments Procedure Encounter Details Date Type Department Care Team (Late st Contact Info) Description 11/01/2016 9:15 AM EDT Office Visit Dermatology at [facility] [address] [place] [address] Jayce Crespo MD [address] [facility] [place] [address] Basal cell carcinoma of chest Social History Tobacco Use Types Packs/Day Years [...] Progress Notes * Jayce Crespo MD - 11/01/2016 9:15 AM EDT Visit for: Procedure History of Present Illness Frankie Monahan is a 50 y.o. male here for treatment of a BCC on the chest Interval Changes in Medications and Medical Histories Since Last Visit 09/20/16: No significant and pertinent interval changes. Allergies No Known Allergies Examination Mood is appropriate. Well developed, well-nourished in no apparent distress, alert and oriented to time, person, place and situation. Focused examination of the left upper chest significant for the following: ?? [id number] pink slightly atrophic plaque with arborizing vessels at the periphery on the mid chest left of midline Pathology Results mid chest left of midline, ?? shave biopsy: - ??Basal cell carcinoma, nodular and superficial types, extending to the peripheral and deep specimen edges. Procedure Discussed with patient treatment options, including the risks and benefits of observation, excisionand curettage and electrodessication, including but not limited to recurrence, cosmesis (scar, dyspigmentation, scar spread), pain, keloid/hypertrophic scar, bleeding, infection, hematoma, nerve damage, and bruising. Patient verbally understands and elects curettage and electrodessication. Consent: written informed consent signed. Surgeon: Jayce Crespo MD, FAAD Circuit Judge: ANGEL ROGER LPN Blood Thinner no Defibrillator or Pacemaker no Prosthetic devices/implants no Take antibiotics prior to procedures no Time Out Performed: Full Name, , and site confirmed with patient Procedure Currettage and Electrodessication with 3mm margins and left to heal by secondary intention Location Left chest Pre-Operative Diagnosis BCC Anesthesia: 1% lidocaine+1:100,000 epinephrine, ml Sterile Prep Alcohol, Chloraprep Lesion 10x10 mm Defect 16x16 mm Final Defect 11x13 mm Lesion was injected with 1% lidocaine with 1:100,000 epinephrine (volume above), and sterilized in the usual sterile fashion. The lesion was curetted to clinically normal skin (3mm radius) and electrodessicated. This was repeated two more cycles. A pressure dressing was placed. <1ml blood loss. No complications. Specimen(s): Not applicable. Post-op care: Vaseline, Pressure Dressing Post-operative pain: 0/10 Assessment and Plan Basal Cell Carcinoma, Mid Chest Left of Midline Wound care instructions provided. Remove pressure dressing in 48h. Ice pack over pressure dressing 5-10min every waking hour for 48h. No soaking baths or swimming for 96h. Wound care: Vaseline or antibiotic ointment, telfa, gauze, paper tape every 12-24h. Pain: Ibuprofen 400mg po q6h and/or Tylenol 325-650mg po q6h prn pain Note initiated by NORM PACHECO LPN has performed the documentation for this encounter in the presence of and acting as a scribe for Dr. Crespo. I performed the above scribed service and agree with the accuracy of the documentation in this encounter. Jayce Crespo MD FAAD Section of Dermatology [facility] documented in this encounter Plan of Treatment Not on file documented as of this encounter Visit Diagnoses Diagnosis Basal cell carcinoma of chest documented in this encounter Care Teams Mold Shop Supervisor Relationship Specialty Start Date End Date Jen Shelley MD [address] [place] [address] PCP - General 12/09/14 01/26/20 documented as of this encounter
--- OUTSIDE RECORDS SUMMARY | 2024-01-23 16:41 | XMS_ITS | Encounter Summary ---
Author Organization [facility] Address One [facility] [place] [address] Care Team Providers Care Sample Cutter Name Role Phone Jen Shelley MD Primary Care Provider Encounter Details Date Type Department Care Team (Late st Contact Info) Description 02/12/2017 3:30 PM EST Office Visit Dermatology at [facility] [address] [place] [address] Jayce Crespo MD [address] [facility] [place] [address] Hypertrophic scar (Primary Dx) Social History Tobacco Use Types Packs/Day Years [...] Progress Notes * Jayce Crespo MD - 02/12/2017 3:30 PM EST Images from the original note were not included. DEPARTMENT DERMATOLOGY AT [facility] Dermatology At [facility] [address] [facility] [address] FOLLOW-UP Chief Complaint: bump on chest at cancer site History of Present Illness Frankie Monahan is a 51 y.o. male. Complains of a pink firm bump on the chest at the site of a previous skin cancer that developed about 1-2 months after the procedure. No bleeding. No history of keloids. Never been treated or biopsied. Interval changes to Medications and Medical, Family and Social Histories (including alcohol and tobacco use) Since Last Visit 11/01/16: No significant interval history. Skin Cancer History Mid chest, left of midline, BCC, C&E'd 11/01/16 Left ala, BCC biopsied Nov 2014 - [...] oriented to time, person, place and situation. A focused exam of his left chest significant for: ?? 11 x 13 mm pink firm plaque confined to the scar on the left chest Assessment and Plan Hypertrophic Scar Favor hypertrophic scar over keloid or recurrence [...] other symptoms occur. Patient agrees to plan. Follow-up: as previously scheduled or return to clinic prn for new suspicious lesions or if changes/symptoms in existing lesions develop. Note initiated by NORM GARCIA LPN has performed the documentation for this encounter in the presence of and acting as ascribe for Dr. Crespo. I performed the above scribed service and agree with the accuracy of the documentation in this encounter. Jayce Crespo MD FAAD Section of Dermatology [facility] documented in this encounter Plan of Treatment Not on file documented as of this encounter Visit Diagnoses Diagnosis Hypertrophic scar- Primary Keloid scar documented in this encounter Care Teams Sample Cutter Relationship Specialty Start Date End Date Jen Shelley MD [address] [place] [address] PCP - General 12/09/14 01/26/20 documented as of this encounter
--- OUTSIDE RECORDS SUMMARY | 2024-01-23 16:41 | XMS_ITS | Encounter Summary ---
Author Organization [facility] Address [facility] [place] [address] Care Team Providers Care Management Internship Name Role Phone None Primary Care Provider Unavailabl e Reason for Visit * Reason Comments Skin Check Encounter Details Date Type Department Care Team (Late st Contact Info) Description 04/10/2013 8:00 AM EST Follow-Up Dermatology at [facility] [place] [address] [place] [address] Dakotah Bailey III, MD [facility] [place] [address] Seborrheic keratosis, inflamed (Primary Dx); Milia Discharge Disposition: Home Social History Tobacco Use [...] as of this encounter Progress Notes * Brock Livingston LPN - 04/10/2013 7:50 AM EST DERMATOLOGY ESTABLISHED PATIENT CLINIC NOTE Date of service: 04/10/2013 Frankie Monahan : 1965 Provider: Dakotah Bailey MD PROBLEM: Skin exam, waist up SKIN HISTORY: Seborrheic Ketratoses Actinic Keratoses Sun Damage Dermatofibroma (DF) Occasional Nevi 03/28/2010 ---Pathologic Diagnosis--- A - Skin, Medial right abdomen, snip: Intradermal melanocytic nevus. 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 C - Skin, Left axilla, snip: Fibroepithelial polyp, inflamed HPI Frankie Monahan is a 47 y.o. year old male. Here for a waist up skin exam. His noticed one spot on his upper right back that is not symptomatic. He has one lesion on his left malar that he would like to discuss removing. A few pink spots on hisface, not symptomatic. He monitors his skin for changes. ADR: No Known Allergies No current outpatient prescriptions on file prior to visit. Patient Active Problem List Diagnosis Code ??? CIS - Entered not Verified T999.0 ??? CIS - Seborrheic Keratosis - left holiness T999.0 ??? AK (actinic keratosis) 702.0 ??? Wart vs tag right zygoma 078.10 ??? SK (seborrheic keratosis) 702.19 ??? Multiple nevi 216.9 ROS General: feeling well Skin: denies other skin complaints EXAM General: NAD, pleasant, cooperative Skin: Examination of skin from the waist up was performed. This includes examination of the skin ofthe face, ears, neck, chest, axillae, left and right upper extremities, hands, back, and abdomen. Significant skin findings: A. scattered 0.4-0.6cm brown papules with waxy, stuck-on appearance. These are irritated and inflamed at times. The lesion on the left malar has a filiform verruca in the site. Milia-like cysts, comedone-like openings and/or fissuring on dermoscopy. Some are thick and irritated on upper right back,left malar cheek and right holiness B. 0.1cm firm, round, white subcutaneous papule, left malar- irritated at times Multiple benign appearing nevi with even pigmentation and well defined margins. No suspicious lesions. ASSESSMENT/PLAN: A. seborrheic keratoses, inflamed and irritated. I discussed this condition with the patient and explored therapeutic options. I recommended treating with LN 2. Patient agrees with plan Procedure Note: Procedure: Destruction of lesion(s) with cryotherapy. Number: 3 Location: as above Discussed procedure and expectations including risks (including risk of hypopigmentation) and benefits. Verbal consent obtained. Frozen with LN2, 15-30 second thaw time, TWICE. There were no complications; the patient tolerated the procedure well. Post-procedure expectations and wound care were reviewed. Mikie Amaral, I discussed this condition with the patient and explored therapeutic options. I recommended Incision and Drainage: Milia/small epidermal cyst, prepped with alcohol, incised with #22 needle and compressed with pressure until cyst contents were removed. Bleeding minimal. Dressed with adhesive bandage. Patient instructed to return to clinic for re-evaluation if lesion does not resolve with this treatment; as expected. Discussed importance of sun protection, sun avoidance strategies, protective clothing, and sunscreen. Follow up in one year, sooner if problems arise I am documenting this encounter acting as the scribe for and in the presence of Dr. Bailey.: BROCK LIVINGSTON LPN I performed the above scribed service and agree with the accuracy of the documentation in this encounter. Dakotah Bailey MD Section of Dermatology [facility] documented in this encounter Plan of Treatment Not on file documented as of this encounter Visit Diagnoses Diagnosis Seborrheic keratosis, inflamed- Primary Inflamed seborrheic keratosis Milia Sebaceous cyst documented in this encounter Care Teams Management Internship Relationship Specialty Start Date End Date None None PCP - General 02/08/10 12/08/14 documented as of this encounter
--- OUTSIDE RECORDS SUMMARY | 2024-01-23 16:41 | XMS_ITS | Encounter Summary ---
Author Organization [facility] Address [facility] [place] [address] Care Team Providers Care Enterprise Business Architect Name Role Phone None Primary Care Provider Unavailabl e Reason for Visit * Reason Comments Skin Check waist up Encounter Details Date Type Department Care Team (Late st Contact Info) Description 04/01/2012 4:30 PM EST Follow-Up Dermatology at [facility] [address] [place] [address] Dakotah Bailey III, MD [facility] [address] [place] [address] Wart vs tag right zygoma; SK (seborrheic keratosis); AK (actinic keratosis) Discharge Disposition: Home Social History Tobacco Use [...] Progress Notes * Brock Livingston LPN - 04/01/2012 4:35 PM EST DERMATOLOGY ESTABLISHED PATIENT CLINIC NOTE Date of service: 04/01/2012 Frankie Saad Johannafia : 1965 Provider: Dakotah Bailey MD PROBLEM: Waist up skin exam SKIN HISTORY: Actinic Keratoses Sun Damage PATIENT SCREENING QUESTIONS DO YOU HAVE A PACEMAKER OR DEFIRILLATOR? No DO YOU HAVE ARTIFICIAL JOINTS? No Less than 2 year old? DO YOU HAVE AN ARTIFICIAL HEART VALVE? No What blood thinner do you take? No Do you take antibiotics before procedures? HPI Frankie Monahan is a 46 y.o. year old male here to have a skin exam from the waist up. He has a spot just under right eyelid that he would like to have removed. No other areas of concern and he is otherwise healthy. He has an irritated tag on the right zygoma that he wants addressed. ADR: No Known Allergies ROS General: feeling well Skin: denies other skin complaints EXAM General: NAD, pleasant, cooperative Skin: Examination of skin from the waist up was performed. This includes examination of the skin ofthe face, ears, neck, chest, axillae, left and right upper extremities, hands, back, and abdomen. Significant skin findings: A. 0.2-0.4cm, sessile, flesh-colored papule on right malar, erythema and irritation is noted. B. firm papule, centrally raised and sclerotic, peripheral hyperpigmentation. Dimpling with lateralpressure on right upper arm Several seborrheic keratoses noted on the trunk, occasional nevus, all well defined and evenly pigmented, no worrisome lesions. ASSESSMENT/PLAN: A. Skin Tag vs verruca right malar area. Irritated and inflamed. I discussed this condition with the patient and explored therapeutic options. I recommended snip removal. Sharp removal of skin tag with anesthestia . 1 tag removed. Procedure: Snip removal using scissors.Discussed procedure and expectations including risks and benefits. Verbal consent obtained. The lesion was removed by scissors technique; specimen was not sent to Pathology. B. Dermatofibroma, reassured Observe nevi and SK's. Call if problems arise. Discussed importance of sun protection, sun avoidance strategies, protective clothing, and sunscreen. I discussed warning signs for skin cancer, including the ABCE's of melanoma. Follow up in one year, sooner if problems arise Note initiated by: BROCK LIVINGSTON LPN Routed to physician for review and changes: Dakotah Bailey MD Section of Dermatology [facility] documented in this encounter Plan of Treatment Not on file documented as of this encounter Visit Diagnoses Diagnosis Wart vs tag right zygoma Viral warts, unspecified SK (seborrheic keratosis) Other seborrheic keratosis AK (actinic keratosis) Actinic keratosis documented in this encounter Care Teams Enterprise Business Architect Relationship Specialty Start Date End Date None None PCP - General 02/08/10 12/08/14 documented as of this encounter
--- OUTSIDE RECORDS SUMMARY | 2024-01-23 16:41 | XMS_ITS | Encounter Summary ---
Author Organization [facility] Address [facility] [place] [address] Care Team Providers Care Wellness Health Coach Name Role Phone None Primary Care Provider Unavailabl e Encounter Details Date Type Department Care Team (Late st Contact Info) Description 03/28/2010 [place] [id number] Dakotah Bailey III, MD [facility] [address] [address] Social History Tobacco Use Types Packs/Day Years Used Date Smoking Tobacco: Never Assessed Sex and Gender Information Value Date Recorded Sex Assigned at Not on file Gender Identity Not on file Sexual Orientation Not on file documented as of this encounter Plan of Treatment Not on file documented as of this encounter Procedures Procedure Name Priority Date/Time Associated Diagnosis Comments SURGICAL PATHOLOGY REPORT Routine 03/28/2010 4:40 PM EST documented in this encounter Results * PATHOLOGY SURGICAL PATHOLOGY FINAL REPORT (03/28/2010 4:40 PM EST) Surgical Pathology Report ? [facility] ? Provider: ?? DAKOTAH BAILEY III, Pt. Name: ?? REJI MONAHAN ?A ? Acc #: ?[id number] ? Pt. ? Col Date: ?? 03/28/2010 ? /Sex: ?1965,(44 years),Male ? Rec Date: ?? 03/28/2010 ? LOC: ?4M ? SURGICAL PATHOLOGY ? ---Pathologic Diagnosis--- ? A - Skin, Medial right abdomen, snip: ? Intradermal melanocytic nevus. ? B - Skin, Lateral right abdomen, shave: ? 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 ? C - Skin, Left axilla, snip: ? Fibroepithelial polyp, inflamed. ? 03/29/10 ? GDS ? 03/29/10 Verified by: ? Piper SAGASTUME, Cullen Valdivia ? Dermatopathologist ? (Electronic Signature) ? The attending pathologist whose signature appears on this report has ? reviewed all diagnostic slides and has edited the gross and/or ? microscopic portion of the report in rendering the final pathologic ? diagnosis. ? ---Microscopic Description--- ? Slides reviewed, microscopic description not recorded. ? ---Gross Description--- ? A - Labeled/Fixative: A, formalin. ? Qty/Size/Weight: ?Single papule, 0.8 x 0.4 cm, with a fleshy, servin-pink, ? polypoid surface. ? Sections/Processing: ??Inked. ??Trisected. ??(T1) ? B - Labeled/Fixative: B, formalin. ? Qty/Size/Weight: ?Single, 1.2 x 0.4 x 0.1 cm. ? Tissue Description: ?? Shave of servin skin. ??There is an eccentric, dark brown ? macule, 0.8 x 0.4 cm in greatest diameter. ? Sections/Processing: ??Inked. ??The specimen is serially cross sectioned. ? (T1) ? C - Labeled/Fixative: C, formalin. ? Qty/Size/Weight: ?Three, each approximately 0.4 x 0.3 x 0.2 cm. ? Tissue Description: ?? Polypoid portions of servin-pink soft tissue ? Sections/Processing: ??(T1) ??aje/PPS ? [facility] ? Provider: ?? RADHA III, DAKOTAH Pt. Name: ?? REJI MONAHAN ?A ? Acc #: ?[id number] ? Pt. ? Col Date: ?? 03/28/2010 ? /Sex: ?1965,(44 years),Male ? Rec Date: ?? 03/28/2010 ? LOC: ?4M ? SURGICAL PATHOLOGY ? ---Clinical Information--- ? Specimen Submitted: ? A - Medial right abd, snip (1) ? B - Lateral right abd, shave (1) ? C - Left axilla, snip (3) ? Clinical History: ? A - Fleshy, pedunculated papule, irritated ? B - Variegated papule ? C - Pedunculated fleshy papules ? Clinical Diagnosis: ? A - skin tag ? B - r/o dysplasia ? C - skin tags FRANKIE CHOENNIUM 03/28/2010 4:40 PM EST Dakotah Bailey III, MD PATHOLOGY/CYTOL OGY ORDERABLES FRANKIE SANTOS documented in this encounter Visit Diagnoses Not on filedocumented in this encounter Care Teams Wellness Health Coach Relationship Specialty Start Date End Date None None PCP - General 02/08/10 12/08/14 documented as of this encounter
--- OUTSIDE RECORDS SUMMARY | 2024-01-23 16:41 | XMS_ITS | Encounter Summary ---
Author Organization [facility] Address [facility] [place] [address] Care Team Providers Care Dealership General Manager Name Role Phone Jen Shelley MD Primary Care Provider Reason for Visit * Reason Onset Date Comments Results 12/14/2014 Encounter Details Date Type Department Care Team (Late st Contact Info) Description 12/14/2014 Telephone Dermatology at [facility] [address] [place] [address] Bekah Prieto MD [facility] [address] [place] [address] Results Social History Tobacco Use Types Packs/Day Years [...] encounter Miscellaneous Notes * Telephone Encounter - Dorinda Steele LPN - 12/15/2014 4:24 PM EDT See result note of 12/15. * Telephone Encounter - Dorinda Steele LPN - 12/15/2014 2:32 PM EDT Have left 3 messages for patient to return call for results. 12/11, 12/15 am, 12/15 pm. * Telephone Encounter - Enedelia Vogel - 12/14/2014 3:00 PM EDT CHRIS PT: Frankie Monahan called returning a call from us about his results. He would like a call back at [phone] documented in this encounter Plan of Treatment Not on file documented as of this encounter Visit Diagnoses Not on filedocumented in this encounter Care Teams Dealership General Manager Relationship Specialty Start Date End Date Jen Shelley MD [address] [place] [address] PCP - General 12/09/14 01/26/20 documented as of this encounter
--- OUTSIDE RECORDS SUMMARY | 2024-01-23 16:41 | XMS_ITS | Encounter Summary ---
Author Organization [facility] Address [facility] [place] [address] Care Team Providers Care Analysis Internship Name Role Phone None Primary Care Provider Unavailabl e Encounter Details Date Type Department Care Team (Late st Contact Info) Description 03/21/2013 Telephone Dermatology at [facility] [address] [place] [address] Dakotah Bailey III, MD [facility] [address] [place] [address] Social History Tobacco Use Types Packs/Day Years [...] encounter Miscellaneous Notes * Telephone Encounter - Karina Landaverde LPN - 03/21/2013 2:37 PM EST See routing information documented in this encounter Plan of Treatment Not on file documented as of this encounter Visit Diagnoses Not on filedocumented in this encounter Care Teams Analysis Internship Relationship Specialty Start Date End Date None None PCP - General 02/08/10 12/08/14 documented as of this encounter
--- OUTSIDE RECORDS SUMMARY | 2024-01-23 16:41 | XMS_ITS | Encounter Summary ---
Author Organization [facility] Address [facility] [place] [address] Care Team Providers Care Orchid Hand Name Role Phone Tatum Phillips MD Primary Care Provider [phone] Encounter Details Date Type Department Care Team (Latest Contact Info) Description 01/17/2023 Travel Social History Tobacco Use Types Packs/Day [...] on filedocumented in this encounter Care Teams Orchid Hand Relationship Specialty Start Date End Date Tatum Phillips MD [address] [place] [address] PCP - General Family Medicine 01/17/23 documented as of this encounter
--- OUTSIDE RECORDS SUMMARY | 2024-01-23 16:41 | XMS_ITS | Encounter Summary ---
Author Organization [facility] Address [facility] [place] [address] Care Team Providers Care Marine Cargo Surveyor Name Role Phone None Primary Care Provider Unavailabl e Encounter Details Date Type Department Care Team (Late st Contact Info) Description 11/29/2022 7:30 AM EDT Office Visit Dermatology [facility] [address] [place] [address] Shin Crespo MD [address] [facility] [place] [address] Neoplasm of unspecified behavior of bone, soft tissue, and skin; Tinea versicolor; History of basal cell carcinoma [...] as of this encounter Progress Notes * Shin Crespo MD - 11/29/2022 7:30 AM EDT Images from the original note were not included. DEPARTMENT OF DERMATOLOGY Medical Dermatology Clinic Provider: Shin Crespo MD FAAD at D[facility]at[facility] at [address] Patient's preferred name Frankie PAST MEDICAL HISTORY (if blank, patient denies history) Melanoma - Dysplastic nevi - SCC - BCC Mid chest, left of midline, BCC C&E Oct 2016 Left ala, BCC biopsied Nov 2014 - observation AK [] cryotherapy [] efudex [] PDT [] Other Relevant Medications [] Immunosuppression [] Transplant [] Oncogenic medication [] Nicotinamide 500mg po bid Other relevant history FAMILY HISTORY (if blank, patient denies history) Melanoma - NMSC - Other relevant history SOCIAL HISTORY Occupation: History of Present Illness: Frankie Monahan is 57 y.o. and here for the following: Recurrent rash on the trunk and arms for several months. Irritating. Treats with Selsun Blue withresolution but recurs within a few days. No known recurrence of cancer sites Requests skin cancer screening Medications: Reviewed in [...] plates, significant for the following. Exam Findings/Assessment/Plan Neoplasm of Unspecified Behavior / Dermatitis A. 8x5mm pearly pink papule with atypical vessels on the left preauricular cheek. DDx: BCC v other Discussed differential diagnoses as above, and management options including the risks and benefits of observation, empiric treatment, or diagnostic biopsy and its risk for scar, pain, infection as well as biopsy wound care instructions. Discussed that pathology results will be available in approximately 1 week; and patient to contact clinic if result is not available in 2 weeks. Answered all questions. Patient elects biopsy. Procedure / Biopsy Discussed with patient biopsy - including but not limited to recurrence, cosmesis (scar, dyspigmentation, scar spread,keloid), pain, keloid/hypertrophic scar, bleeding, infection for biopsy. Answeredall questions. Patient verbally understands, verbally consents to and elects biopsy. Images Photo(s) taken by Georgette Crespo MD. with patient's verbal permission for use for clinical and education purposes. Figure A Procedure Time Out Performed: Name, , and site(s) confirmed with patient [x] Yes Blood Thinner? [x] Denies [] Yes Pacemaker or defribrillator? [x] Denies [] Yes Joint Replacement in the last 24 months? [x] Denies [] Yes Allergy to lidocaine or epinephrine? [x] Denies [] Yes Permission to convey results: [x] Call [phone] and permission to leave voicemail Procedure (s) A. [x] Shave [] Punch Anesthesia: 1% lidocaine [] NO epi [x] 1:100,000 epi Sterile Prep Alcohol Lesion biopsied with shave technique using leann blade. Hemostasis achieved with [x] Drysol [] Monsels [x] Electrocautery. <1ml blood loss. No complications. Specimen(s): Placed in formalin and sent to Pathology for histologic examination. Post-op care: Vaseline, [] Bandaid [] Pressure Dressing Post-operative pain: 0/10 Wound care instructions provided including cleaning Vaseline or topical antibiotic once or twice a day, allowing soapy water to wash over wound daily, and an optional Band-Aid or bandage. Recommend sun protection after the wound is healed to mitigate long-term redness. Tinea versicolor [place] polycyclic macules or small patches coalescing into patches - with fine scale on skin spread -on the medial arms, right forearm and flanks, right hip and right lower back Flare Favor tinea versicolor. Recommend continue selsun blue 1-2 x per week seasonally OR switch to ketoconazole Counseled: tinea versicolor, likely recurrent course, etiology, and treatment options, including selenium sulfide or nizoral shampoo or systemic antifungal regimen. Discussed major risks of liver inflammation or even failure as well as recurrence associated with systemic treatment. Answered all questions. Handout on tinea versicolor provided. Patient elects to continue Selsun Blue Start Selsun Blue shampoo applied to affected areas and rinsed after 5 minutes daily for up to 3 weeks as needed for flares and 1 - 2 x per week for prevention/maintenance during seasonal flares. Nevi Well-demarcated, round or oval, servin or [...] other symptoms occur. Patient agrees to plan. Dhaliwal Angiomas Dhaliwal red papules on the head, trunk, axillae and extremities Counseled: dhaliwal angiomas. Benign. No treatment necessary unless symptoms develop. Treatment considered cosmetic and [id number]. Treatment options, including but not limited to [...] the toes Favor dermatophyte infection over trauma. Counseled: fungal infections of the nail plates, dermatophyte > yeast, risk for more serious infections and complications a/w diabetes, limitations of diagnostic testing with culture and/or PAS stain, prognosis, risk for recurrence after treatment regardless of topical or systemic, and treatmentoptions, including but not limited to ciclopirox lacquer, topical Jublia for almost a year daily therapy, and systemic antifungals for >2 months. Decreased efficacy the thicker the nail. Discussedmajor risk of liver failure associated with systemic antifungal therapy, especially terbinafine. Answered all questions. Patient declines treatment at the time. History of Skin Cancer No clinical evidence of recurrence in scars, as listed above Recommend regular evaluation of scars Return to clinic if suspect recurrence. Patient agrees to plan. Patient Counseled [Skin Cancer] [x] History of skin cancer [] History of [...] for skin cancer screening in 24 months. Regular full body self examinations and return to clinic for new suspicious lesions or if changes/symptoms in existing lesions develop. Follow-up: July 2023 for a FSE . Return sooner as needed for suspicious lesion, new or worsening dermatitis. [x] Recall placed [] Forwarded to space scheduler [] Patient scheduled before exiting Scribe attestation: SHIN CRESPO MD has performed the documentation for this encounter in the presence of and acting as a scribe for Shin Crespo MD FAAD. I performed the above scribed service and agree with the accuracy of the documentation in this encounter. Reviewed and signed by: Shin Crespo MD FAAD Dermatology [facility] * Shin Crespo MD - 11/29/2022 7:30 AM EDT [id number] Left preauricular cheek, skin shave biopsy: - Basal cell carcinoma, nodular type, transected at the base NODULAR BCC, LEFT PREAURICULAR CHEEK Recommend Mohs Call [phone] and permission to leave voicemail documented in this encounter Plan of Treatment Not on file documented as of this encounter Procedures Procedure Name Priority Date/Time Associated Diagnosis Comments SURGICAL PATHOLOGY REPORT Routine 11/29/2022 7:43 AM EDT SPECIMEN TO PATHOLOGY Routine 11/29/2022 7:43 AM EDT Neoplasm of unspecified behavior of bone, soft tissue, and skin documented in this encounter Results * (ABNORMAL) Surgical Pathology Report (11/29/2022 7:43 AM EDT) Final Diagnosis [id number] ? Location: HDM The signing pathologist has (i) examined the relevant preparation(s) for the specimen(s) and (ii) rendered or confirmed the diagnosis(es). . ?Surgical Pathology DIAGNOSIS Left preauricular cheek, skin shave biopsy: - ??Basal cell carcinoma, nodular type, ??transected at the base Electronically signed by: ?Brianne Cuadra MD Verified: ??12/06/2022 16:09 ??Dermatopatholo gist Performed at: ??-[facility] of [facility]ology, [place] [address] Property Field Adjuster: Blair Chu MD, AP, ??CLIA Certificate: [id number] DISCUSSION THIS RESULT REQUIRES PHYSICIAN/A.P.P. FOLLOW UP SPECIMEN(S) SUBMITTED A - Left Preauricular Cheek, skin shave biopsy (1) CLINICAL INFORMATION 8 x 5 mm pearly pink papule of atypical vessels. DDX: ECC versus other SPECIMEN PROCESSING A - Labeled/Fixative : Tissue demographics, formalin. Quantity/Size: ??Single, 0.8 x 0.6 x 0.1 cm. Tissue Description: Shave of servin-pink skin. Sections/Process ing: Inked, trisected and entirely submitted in 1 cassette labeled A1. ??nrl(A) 12/06/2022 4:09 PM EDT [facility] SPECIMEN FROM SKIN / Unknown 11/29/2022 7:43 AM EDT 11/29/2022 7:43 AM EDT Shin Crespo MD PATHOLOGY/[place] [address] [facility] [place] [address] * Specimen to Pathology (11/29/2022 7:43 AM EDT) AP Specimen 11/29/2022 7:43 AM EDT 11/29/2022 7:43 AM EDT Narrative [facility] - 11/29/2022 7:43 AM EDT Specimen requisition ordered. ??Separate Pathology report to follow Shin Crespo MD PATHOLOGY/[place] [address] documented in this encounter Visit Diagnoses Diagnosis Neoplasm of unspecified behavior of bone, soft tissue, and skin Tinea versicolor Pityriasis versicolor History of basal cell carcinoma (BCC) Lentigines Other dyschromia Seborrheic keratoses Dhaliwal angioma Nevus, non-neoplastic Multiple benign nevi of upper extremity, lower extremity, and trunk documented in this encounter Care Teams Marine Cargo Surveyor Relationship Specialty Start Date End Date None None PCP - General 08/02/21 01/16/23 documented as of this encounter
--- OUTSIDE RECORDS SUMMARY | 2024-01-23 16:41 | XMS_ITS | Encounter Summary ---
Author Organization [facility] Address [facility] [place] [address] Care Team Providers Care Concrete Batcher Name Role Phone Jen Shelley MD Primary Care Provider [phone] Encounter Details Date Type Department Care Team (Late st Contact Info) Description 12/30/2014 Telephone Dermatology at [facility] [address] [place] [id number] Shilpa Li, RN Social History Tobacco Use Types Packs/Day Years [...] encounter Miscellaneous Notes * Telephone Encounter - Shilpa Pabon LPN - 12/30/2014 10:49 AM EDT Unable to reach patient to review [facility] survey. Message left. SHILPA PABON LPN documented in this encounter Plan of Treatment Not on file documented as of this encounter Visit Diagnoses Not on filedocumented in this encounter Care Teams Concrete Batcher Relationship Specialty Start Date End Date Jen Shelley MD [address] [place] [address] PCP - General 12/09/14 01/26/20 documented as of this encounter
--- OUTSIDE RECORDS SUMMARY | 2024-01-23 16:41 | XMS_ITS | Encounter Summary ---
Author Organization [facility] Address [address] [facility] [place] [address] Care Team Providers Care Prepress Manager Name Role Phone Jen Shelley MD Primary Care Provider [phone] Encounter Details Date Type Department Care Team (Late st Contact Info) Description 09/22/2016 Telephone Dermatology at [facility] [address] [place] [address] Jayce Crespo MD [address] [facility] [place] [address] Social History Tobacco Use Types Packs/Day Years [...] Telephone Encounter - Alma Garcia LPN - 09/22/2016 4:47 PM EDT This short story writer called patient to discuss pathology. Patient was unavailable, verbal permission given during appointment to leave detailed message regarding result. Pathology: - Basal Cell Carcinoma, Chest - Recommend C&E or excision with 4mm margins. Requested that patient call and discuss how he would like to proceed, call at earliest convenience at [phone]. * Telephone Encounter - Alma Garcia LPN - 09/22/2016 4:47 PM EDT ----- Message from Jayce Crespo MD sent at 09/21/2016 8:36 PM EDT ----- [id number] ? Skin, mid chest left of midline, [...] on filedocumented in this encounter Care Teams Prepress Manager Relationship Specialty Start Date End Date Jen Shelley MD [address] [place] [address] PCP - General 12/09/14 01/26/20 documented as of this encounter
--- OUTSIDE RECORDS SUMMARY | 2024-01-23 16:41 | XMS_ITS | Encounter Summary ---
Author Organization [facility] Address [facility] [place] [address] Care Team Providers Care Pathological Technician Name Role Phone None Primary Care Provider Unavailabl e Reason for Visit * Reason Comments Skin Check Encounter Details Date Type Department Care Team (Late st Contact Info) Description 10/17/2010 7:45 AM EDT Follow-Up Dermatology [place] [id number] Dakotah Bailey III, MD [facility] [address] [place] [address] [place] (actinic keratosis) Discharge Disposition: Home Social [...] as of this encounter Progress Notes * Dakotah Bailey III, MD - 10/17/2010 7:54 AM EDT DERMATOLOGY ESTABLISHED PATIENT CLINIC NOTE Date of service: 10/17/2010 Frankie Monahan : 1965 Provider: Dakotah Bailey MD PROBLEM: sun damage; new lesion on right ear. SKIN HISTORY: sun damage HPI Frankie Monahan is a 44 y.o. year old male. He monitors his skin and is aware of his skin. He has had sun damage and actinic keratoses in the past. ADR: No Known Allergies ROS General: feeling well Skin: denies other skin complaints EXAM General: NAD, pleasant, cooperative Skin:focused exam of ears. Significant skin findings: A. 0.2-0.3cm scaly irregular pink papule(s)one spot on right ear in the antihelical area Further examination of the face Did not reaveal any other worrisome or suspicious lesions. ASSESSMENT/PLAN: A. ak on right ear. I discussed this lesion and therapy. I recommended Liq N2. Procedure(s): Destruction of lesion(s) with cryotherapy. Number: 1 Location: as above Discussed procedure and expectations including risks (including risk of hypopigmentation) and benefits. Verbal consent obtained. Frozen with LN2, 15-30 second thaw time, TWICE. There were no complications; the patient tolerated the procedure well. Post-procedure expectations and wound care were reviewed. B. RTC as needed. 1 year Note initiated by: ANGEL ROGER LPN Routed to physician for review and changes: Dakotah Bailey MD Section of Dermatology [facility] documented in this encounter Plan of Treatment Not on file documented as of this encounter Visit Diagnoses Diagnosis AK (actinic keratosis) Actinic keratosis documented in this encounter Care Teams Pathological Technician Relationship Specialty Start Date End Date None None PCP - General 02/08/10 12/08/14 documented as of this encounter
--- OUTSIDE RECORDS SUMMARY | 2024-01-23 16:41 | XMS_ITS | Encounter Summary ---
Author Organization [facility] Address [facility] [place] [address] Care Team Providers Care Attorney Recruiter Name Role Phone Tatum Phillips MD Primary Care Provider [phone] Encounter Details Date Type Department Care Team (Late st Contact Info) Description 03/28/2010 Orders Only Dermatology at [facility] [address] [place] [address] Dakotah Bailey III, MD [facility] [address] [place] [address] Social History Tobacco Use Types Packs/Day Years [...] EST documented in this encounter Results * Surgical Pathology Report (03/28/2010 4:40 PM EST) Surgical Pathology Report [id number] ? Location: 4M The signing pathologist has (i) examined the relevant preparation(s) for the specimen(s) and (ii) rendered or confirmed the diagnosis(es). . ?Pathology Surgical Pathology Final Report Clinical Information Specimen Submitted: A - Medial right abd, snip (1) B - Lateral right abd, shave (1) C - Left axilla, snip (3) Clinical History: A - Fleshy, pedunculated papule, irritated B - Variegated papule C - Pedunculated fleshy papules Clinical Diagnosis: A - skin tag B - r/o dysplasia C - skin tags Gross Description A - Labeled/Fixative: A, formalin. Qty/Size/Weight: ?Single papule, 0.8 x 0.4 cm, with a fleshy, servin-pink, ?polypoid surface. Sections/Processi ng: ??Inked. ??Trisected. ??(T1) B - Labeled/Fixative: B, formalin. Qty/Size/Weight: ?Single, 1.2 x 0.4 x 0.1 cm. Tissue Description: ?? Shave of servin skin. ??There is an eccentric, dark brown ?macule, 0.8 x 0.4 cm in greatest diameter. Sections/Processi ng: ??Inked. ??The specimen is serially cross sectioned. ?(T1) C - Labeled/Fixative: C, formalin. Qty/Size/Weight: ?Three, each approximately 0.4 x 0.3 x 0.2 cm. Tissue Description: ?? Polypoid portions of servin-pink soft tissue Sections/Processi ng: ??(T1) ??aje/PPS Microscopic Description Slides reviewed, microscopic description not recorded. Diagnosis A - Skin, Medial right abdomen, snip: Intradermal melanocytic nevus. 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 C - Skin, Left axilla, snip: . Diagnosis Fibroepithelial polyp, inflamed. 03/29/10 GDS 03/29/10 Verified by: ? Piper SAGASUTME, Cullen Valdivia ?Dermatopatholog ist ?(Electronic Signature) The attending pathologist whose signature appears on this report has reviewed all diagnostic slides and has edited the gross and/or microscopic portion of the report in rendering the final pathologic diagnosis. FRANKIE CHOCLEO 03/28/2010 4:40 PM EST Dakotah Bailey III, MD PATHOLOGY/CYTOL OGY ORDERABLES Performing Organization Address City/State/[facility] Co in Phone Number FRANKIE SANTOS documented in this encounter Visit Diagnoses Not on filedocumented in this encounter Care Teams Attorney Recruiter Relationship Specialty Start Date End Date Tatum Phillips MD [address] [place] [address] PCP - General Family Medicine 01/17/23 documented as of this encounter
--- OUTSIDE RECORDS SUMMARY | 2024-01-23 16:41 | XMS_ITS | Encounter Summary ---
Author Organization [facility] Address [facility] [place] [address] Care Team Providers Care Biomedical Service Engineer Name Role Phone Tatum Phillips MD Primary Care Provider [phone] Encounter Details Date Type Department Care Team (Latest Contact Info) Description 01/17/2023 7:45 AM EDT Clinical Support Dermatology at [facility] [address] [place] [address] Rafa Renteria MD [facility] [address] [place] [address] Basal cell carcinoma (BCC) of left preauricular region Social History Tobacco [...] as of this encounter Progress Notes * Tatum Bruce LPN - 01/17/2023 7:45 AM EDT Mohs consultation and preoperative note (H&P) Patient Name: Frankie Monahan Age: 57 y.o. Date of : 1965 Today's Date: 01/17/2023 REFERRING PROVIDER: Jayce Crespo MD CC: Mohs micrographic surgery for treatment of a cutaneous tumor HPI: Frankie Monahan is a 57 y.o. male presenting for biopsy-proven basal cell carcinoma, nodular type,location on the left preauricular cheek. The dermatologic preoperative information sheet was reviewed with pertinent positive and negative as below. DERMATOLOGIC PRE-OPERATIVE EVALUATION AND REVIEW OF SYSTEMS History of Mohs surgery-No Pacemaker/Defibrillator-No Joint replacement or other implantable devices (e.g. Cochlear implant)-No Do you take a blood thinner-No History of organ transplant-No History of artificial valve or stroke-No History of liver disease or bleeding disorder-No Do you have any medical problems that may affect your upcoming surgery-No Do you have any concerns regarding your upcoming surgery-No SOCIAL HISTORY: Makes Own Decisions: Yes Hearing aid or other devices: No Relevant travel history or future plans: No Tobacco use (amount per day, type of tobacco):No Do you have any physical limitations that may affect your surgery-No ALLERGIES: Allergies reviewed MEDICATIONS: Medications reviewed documented in this encounter Plan of Treatment Not on file documented as of this encounter Visit Diagnoses Diagnosis Basal cell carcinoma (BCC) of left preauricular region documented in this encounter Care Teams Biomedical Service Engineer Relationship Specialty Start Date End Date Tatum Phillips MD [address] [place] [address] PCP - General Family Medicine 01/17/23 documented as of this encounter
--- OUTSIDE RECORDS SUMMARY | 2024-01-23 16:41 | XMS_ITS | Referral Summary ---
Author Organization [facility] Address [address] [place] [address] Care Team Providers Care Film Color Tester Name Role Phone Tatum Phillips MD Primary Care Provider [phone] Social History Tobacco Use Types Packs/Day Years Used Date Smoking Tobacco: Never Assessed Interpersonal Safety Answer Date Record ed Physically Hurt Never 07/23/2020 Verbally Threaten Not on file 07/23/2020 Sex and Gender Information Value Date Recorded Sex Assigned at Not on file Gender Identity Not on file Sexual Orientation Not on file Plan of Treatment Not on file Care Teams Film Color Tester Relationship Specialty Start Date End Date Tatum Phillips MD [address] [place] [address] PCP - General 03/19/20
--- OUTSIDE RECORDS SUMMARY | 2024-01-23 16:41 | XMS_ITS | Encounter Summary ---
Author Organization [facility] [place] [address] Care Team Providers Care Shoulder Joiner Name Role Phone Tatum Phillips MD Primary Care Provider [phone] Encounter Details Date Type Department Care Team (Late st Contact Info) Description 02/28/2007 [place] [id number] Davis Sanabria MD [address] [place] [address] Social History Tobacco Use Types Packs/Day Years [...] Associated Diagnosis Comments SURGICAL PATHOLOGY REPORT Routine 02/28/2007 8:05 PM EST documented in this encounter Results * Surgical Pathology Report (02/28/2007 8:05 PM EST) Surgical Pathology Report - [id number] ? Location: The signing pathologist has (i) examined the relevant preparation(s) for the specimen(s) and (ii) rendered or confirmed the diagnosis(es). . ?Pathology Surgical Pathology Final Report Clinical Information Specimen Submitted: A - Rt - Portion Vas Deferens B - (L) - Portion Vas Deferens Clinical History: Sterilization Clinical Diagnosis: Vasectomy Referring Identifier: ??[id number] Gross Description A - Labeled/Fixativ e: #1 right portion vas deferens, formalin. Qty/Size/Weight : ?Single, 0.6 cm in length x 0.3 cm in average ?diameter. Tissue Description: ?? Tubular segment of servin-white tissue. Sections/Proces sing: ??Bisected. ??(T1) B - Labeled/Fixativ e: #2 left portion vas deferens, formalin. Qty/Size/Weight : ?Single, 0.8 cm in length x 0.3 cm in average ?diameter. ??Tubular segment of servin-white tissue. Tissue Description: ?? Soft, servin tissue. Sections/Proces sing: ??Bisected. ??(T1) ??aje/NOHEMY Microscopic Description Slides reviewed, microscopic description not recorded. Diagnosis A - Segment of right vas deferens. B - Segment of left vas deferens. CR-0 03/05/07 ARS 03/05/07 Verified by: ? Danilo Raphael MD ?Pathologist ?(Electronic Signature) The attending pathologist whose signature appears on this report has reviewed all diagnostic slides and has edited the gross and/or microscopic portion of the report in rendering the final pathologic diagnosis. FRANKIE SANTOS 02/28/2007 8:05 PM EST Narrative Resulting Agency Comment Spec In Lab / [facility] Davis Sanabria MD PATHOLOGY/CYTOLOGY O RDERABLES FRANKIE COHENNIUM documented in this encounter Visit Diagnoses Not on filedocumented in this encounter Care Teams Shoulder Joiner Relationship Specialty Start Date End Date Tatum Phillips MD [address] [place] [address] PCP - General Family Medicine 01/17/23 documented as of this encounter
[2024-01-24 19:47] LABS: PSA, Screening 0.6 ng/mL (<=3.5)
== END 2024-01-23 16:38 | disposition home or self-care (01) ==
LOC: NCHCN 16:37
PROVIDERS: PCP Family Medicine; Visit Provider Family Medicine
DX: Z00.00 Encounter for general adult medical examination without abnormal findings (principal)
CPT/HCPCS: 84153

== ENCOUNTER 2024-05-30 18:09 | Outpatient (REF) | payer OTHER, SELFPAY ==
[2024-05-30 21:46] LABS: Calculated LDL 151 mg/dL (<100); Cholesterol 237 mg/dL (<200); HDL Cholesterol 54 mg/dL (>or=40); Triglyceride 162 mg/dL (<150)
== END 2024-05-30 18:10 | disposition home or self-care (01) ==
LOC: NCHCN 18:09
PROVIDERS: PCP Family Medicine; Visit Provider Family Medicine
DX: E66.3 Overweight (principal)
CPT/HCPCS: 80061

== ENCOUNTER 2025-03-09 10:48 | Outpatient (REF) | payer OTHER, SELFPAY ==
[2025-03-09 15:31] LABS: ALT 47 U/L (10-49); AST 24 U/L (<34); Albumin 4.4 g/dL (3.2-5.0); Alkaline Phosphatase 56 U/L (46-116); Anion Gap 8.6 mmol/L (3-11); BUN 14 mg/dL (9-23); Bilirubin, Total 1.0 mg/dL (0.2-1.2); CO2 27.4 mmol/L (20.0-31.0); Calcium 9.7 mg/dL (8.3-10.6); Chloride 106 mmol/L (98-107); Cholesterol 139 mg/dL (<200); Glucose 81 mg/dL (74-106); HDL Cholesterol 49 mg/dL (>or=40); Potassium 4.2 mmol/L (3.5-5.1); Sodium 142 mmol/L (136-145); Total Protein 6.9 g/dL (5.7-8.2)
[2025-03-10 10:23] LABS: PSA, Screening 0.5 ng/mL (<=3.5)
== END 2025-03-09 10:49 | disposition home or self-care (01) ==
LOC: NCHCN 10:48
PROVIDERS: PCP Family Medicine; Visit Provider Family Medicine
DX: I10 Essential (primary) hypertension (principal); Z12.5 Encounter for screening for malignant neoplasm of prostate; Z00.00 Encounter for general adult medical examination without abnormal findings
CPT/HCPCS: 80053; 80061; 84153